=== PATIENT | male | born 1945 | race Caucasian/White ===

== ENCOUNTER → 2020-04-06 08:06 | Outpatient (BNVA) | payer MEDICARE, OTHER, SELFPAY | PROVIDERS: PCP Internal Medicine; Visit Provider Internal Medicine | DX: I48.0 Paroxysmal atrial fibrillation (principal); Z51.81 Encounter for therapeutic drug level monitoring; Z79.01 Long term (current) use of anticoagulants | CPT/HCPCS: 85610; 99211 ==

== ENCOUNTER 2020-06-14 06:51 | Outpatient (REF) | payer MEDICARE, OTHER, SELFPAY ==
[2020-06-14 08:02] LABS: MANUAL DIFF FLAG NO
[2020-06-14 08:09] LABS: Basophils Percent Auto 0.5 % (0-2); Eosinophils Absolute Auto 0.2 X10*3/uL (0.0-0.4); Eosinophils Percent Auto 2.1 % (0-4); Hematocrit 46.2 % (42-52); Hemoglobin 15.1 g/dl (14.0-18.0); Imm Gran Abs Auto 0.03 X10*3/uL (0.00-0.03); Imm Gran Pct Auto 0.4 % (0.0-0.4); Lymphocytes Absolute Auto 2.4 X10*3/uL (1.2-4.9); Lymphocytes Percent Auto 31.5 % (20-40); Mean Corpuscular HGB Conc 32.7 g/dl (31.0-36.0); Mean Corpuscular Volume 88.7 fL (80-98); Mean Platelet Volume 9.5 fL (9.4-12.4); Monocytes Absolute Auto 0.7 X10*3/uL (0.1-1.2); Monocytes Percent Auto 9.1 % (2-11); Neutrophils Absolute Auto 4.3 X10*3/uL (2.0-8.3); Neutrophils Percent Auto 56.4 % (45-73); Platelet Count 263 X10*3/uL (160-400); Red Blood Count 5.21 X10*6/uL (4.60-5.80); White Blood Count 7.6 X10*3/uL (4.8-10.8)
[2020-06-14 08:23] LABS: Alanine Aminotransferase 28 U/L (0-40); Albumin Level 4.2 g/dL (3.5-5.0); Alkaline Phosphatase 80 U/L (39-117); Anion Gap 13 (12-20); Aspartate Amino Transferase 29 U/L (5-37); Bilirubin Total 0.8 mg/dL (0.0-1.0); Blood Urea Nitrogen 27 mg/dL (9-16); Calcium 9.1 mg/dL (8.4-10.2); Carbon Dioxide 27 mmol/L (22-29); Chloride 105 mmol/L (96-108); Cholesterol 144 mg/dL; Estimated Glomerular Filt Rate 53; Glucose Fasting 98 mg/dL (60-99); HDL Cholesterol 42 mg/dL; LDL Cholesterol Calculated 70 mg/dl; Potassium 4.6 mmol/l (3.3-5.1); Sodium 140 mmol/L (135-145); Total Protein 7.1 g/dL (6.5-8.0); Triglycerides 163 mg/dL
== END 2020-06-14 06:52 | disposition home or self-care (01) ==
LOC: HO.LAB 06:51
PROVIDERS: PCP Internal Medicine; Visit Provider Internal Medicine
DX: I25.10 Atherosclerotic heart disease of native coronary artery without angina pectoris (principal); I48.91 Unspecified atrial fibrillation; I10 Essential (primary) hypertension; E78.00 Pure hypercholesterolemia, unspecified; D64.9 Anemia, unspecified; N28.9 Disorder of kidney and ureter, unspecified
CPT/HCPCS: 36415; 80053; 80061; 85025

== ENCOUNTER → 2020-06-20 08:02 | Outpatient (BNVA) | payer MEDICARE, OTHER, SELFPAY | PROVIDERS: PCP Internal Medicine; Visit Provider Internal Medicine | DX: I48.0 Paroxysmal atrial fibrillation (principal); Z51.81 Encounter for therapeutic drug level monitoring; Z79.01 Long term (current) use of anticoagulants | CPT/HCPCS: 85610; 99211 ==

== ENCOUNTER → 2020-11-07 08:00 | Outpatient (BNVA) | payer MEDICARE, OTHER, SELFPAY | PROVIDERS: PCP Internal Medicine; Visit Provider Internal Medicine | DX: I48.0 Paroxysmal atrial fibrillation (principal); Z51.81 Encounter for therapeutic drug level monitoring; Z79.01 Long term (current) use of anticoagulants | CPT/HCPCS: 85610; 99211 ==

== ENCOUNTER → 2020-12-05 08:16 | Outpatient (BNVA) | payer MEDICARE, OTHER, SELFPAY | PROVIDERS: PCP Internal Medicine; Visit Provider Internal Medicine | DX: I48.0 Paroxysmal atrial fibrillation (principal); Z51.81 Encounter for therapeutic drug level monitoring; Z79.01 Long term (current) use of anticoagulants | CPT/HCPCS: 85610; 99211 ==

== ENCOUNTER → 2021-01-10 08:01 | Outpatient (BNVA) | payer MEDICARE, OTHER, SELFPAY | PROVIDERS: PCP Internal Medicine; Visit Provider Internal Medicine | DX: I48.0 Paroxysmal atrial fibrillation (principal); Z51.81 Encounter for therapeutic drug level monitoring; Z79.01 Long term (current) use of anticoagulants | CPT/HCPCS: 85610; 99211 ==

== ENCOUNTER → 2021-02-07 07:58 | Outpatient (BNVA) | payer MEDICARE, OTHER, SELFPAY | PROVIDERS: PCP Internal Medicine; Visit Provider Internal Medicine | DX: I48.0 Paroxysmal atrial fibrillation (principal); Z79.01 Long term (current) use of anticoagulants; Z51.81 Encounter for therapeutic drug level monitoring | CPT/HCPCS: 85610; 99211 ==

== ENCOUNTER → 2021-03-08 08:02 | Outpatient (BNVA) | payer MEDICARE, OTHER, SELFPAY | PROVIDERS: PCP Internal Medicine; Visit Provider Internal Medicine | DX: I48.0 Paroxysmal atrial fibrillation (principal); Z51.81 Encounter for therapeutic drug level monitoring; Z79.01 Long term (current) use of anticoagulants | CPT/HCPCS: 85610; 99211 ==

== ENCOUNTER 2021-03-27 06:59 | Outpatient (REF) | payer MEDICARE, OTHER, SELFPAY ==
[2021-03-27 08:01] LABS: MANUAL DIFF FLAG NO
[2021-03-27 08:08] LABS: Basophils Percent Auto 0.5 % (0-2); Eosinophils Absolute Auto 0.2 X10*3/uL (0.0-0.4); Eosinophils Percent Auto 3.6 % (0-4); Hematocrit 41.5 % (42-52); Hemoglobin 13.7 g/dl (14.0-18.0); Imm Gran Abs Auto 0.01 X10*3/uL (0.00-0.03); Imm Gran Pct Auto 0.2 % (0.0-0.4); Lymphocytes Absolute Auto 1.9 X10*3/uL (1.2-4.9); Lymphocytes Percent Auto 31.5 % (20-40); Mean Corpuscular Hemoglobin 29.2 pg (27.0-33.0); Mean Corpuscular Volume 88.5 fL (80-98); Mean Platelet Volume 9.4 fL (9.4-12.4); Monocytes Absolute Auto 0.7 X10*3/uL (0.1-1.2); Monocytes Percent Auto 10.6 % (2-11); Neutrophils Absolute Auto 3.3 X10*3/uL (2.0-8.3); Neutrophils Percent Auto 53.6 % (45-73); Platelet Count 230 X10*3/uL (160-400); Red Blood Count 4.69 X10*6/uL (4.60-5.80); Red Cell Distribution Width 12.5 % (11.0-16.0); White Blood Count 6.2 X10*3/uL (4.8-10.8)
[2021-03-27 08:29] LABS: Alanine Aminotransferase 29 U/L (0-40); Albumin Level 4.2 g/dL (3.5-5.0); Alkaline Phosphatase 83 U/L (39-117); Anion Gap 11 (12-20); Aspartate Amino Transferase 28 U/L (5-37); Bilirubin Total 0.7 mg/dL (0.0-1.0); Blood Urea Nitrogen 20 mg/dL (9-16); Calcium 9.7 mg/dL (8.4-10.2); Carbon Dioxide 27 mmol/L (22-29); Chloride 108 mmol/L (96-108); Cholesterol 151 mg/dL; Estimated Glomerular Filt Rate 51; Glucose Random 100 mg/dL (60-115); HDL Cholesterol 43 mg/dL; LDL Cholesterol Calculated 77 mg/dl; Sodium 141 mmol/L (135-145); Triglycerides 159 mg/dL
[2021-03-27 08:31] LABS: B Type Natriuretic Peptide 62 pg/mL (<100)
[2021-03-27 08:54] LABS: Free T4 (Free Thyroxine) 0.82 ng/dL (0.71-1.85); Prostate Specific Antigen Scr < 0.05 ng/mL (<0.05-4.0); Thyroid Stimulating Hormone 2.72 uIU/mL (0.32-4.0)
[2021-03-27 11:02] LABS: Folate 16.1 ng/mL (> or = 4.0); Vitamin B12 436 pg/mL (200-900)
== END 2021-03-27 07:00 | disposition home or self-care (01) ==
LOC: HO.LAB 06:59
PROVIDERS: PCP Internal Medicine; Visit Provider Internal Medicine
DX: Z12.5 Encounter for screening for malignant neoplasm of prostate (principal); I10 Essential (primary) hypertension; E78.00 Pure hypercholesterolemia, unspecified; I48.0 Paroxysmal atrial fibrillation; Z85.46 Personal history of malignant neoplasm of prostate
CPT/HCPCS: 36415; 80053; 80061; 82607; 82746; 83880; 84153; 84439; 84443; 85025

== ENCOUNTER → 2021-04-05 08:05 | Outpatient (BNVA) | payer MEDICARE, OTHER, SELFPAY | PROVIDERS: PCP Internal Medicine; Visit Provider Internal Medicine | DX: I48.0 Paroxysmal atrial fibrillation (principal); Z51.81 Encounter for therapeutic drug level monitoring; Z79.01 Long term (current) use of anticoagulants | CPT/HCPCS: 85610; 99211 ==

== ENCOUNTER → 2021-06-06 08:03 | Outpatient (BNVA) | payer MEDICARE, OTHER, SELFPAY | PROVIDERS: PCP Internal Medicine; Visit Provider Internal Medicine | DX: I48.0 Paroxysmal atrial fibrillation (principal); Z51.81 Encounter for therapeutic drug level monitoring; Z79.01 Long term (current) use of anticoagulants | CPT/HCPCS: 85610; 99211 ==

== ENCOUNTER → 2021-11-21 08:01 | Outpatient (BNVA) | payer MEDICARE, OTHER, SELFPAY | PROVIDERS: PCP Internal Medicine; Visit Provider Internal Medicine | DX: I48.0 Paroxysmal atrial fibrillation (principal); Z79.01 Long term (current) use of anticoagulants; Z51.81 Encounter for therapeutic drug level monitoring | CPT/HCPCS: 85610; 99211 ==

== ENCOUNTER → 2021-12-20 08:02 | Outpatient (BNVA) | payer MEDICARE, OTHER, SELFPAY | PROVIDERS: PCP Internal Medicine; Visit Provider Internal Medicine | DX: I48.0 Paroxysmal atrial fibrillation (principal); Z79.01 Long term (current) use of anticoagulants; Z51.81 Encounter for therapeutic drug level monitoring | CPT/HCPCS: 85610; 99211 ==

== ENCOUNTER 2022-01-05 06:55 | Outpatient (REF) | payer MEDICARE, OTHER, SELFPAY ==
[2022-01-05 07:07] LABS: MANUAL DIFF FLAG NO
[2022-01-05 07:13] LABS: Basophils Absolute Auto 0.1 X10*3/uL (0.0-0.2); Basophils Percent Auto 0.8 % (0-2); Eosinophils Absolute Auto 0.2 X10*3/uL (0.0-0.4); Eosinophils Percent Auto 3.2 % (0-4); Hematocrit 42.3 % (42.0-52.0); Hemoglobin 13.9 g/dl (14.0-18.0); Imm Gran Abs Auto 0.02 X10*3/uL (0.00-0.03); Imm Gran Pct Auto 0.3 % (0.0-0.4); Lymphocytes Absolute Auto 2.3 X10*3/uL (1.2-4.9); Lymphocytes Percent Auto 35.5 % (20-40); Mean Corpuscular HGB Conc 32.9 g/dl (31.0-36.0); Mean Corpuscular Volume 88.3 fL (80.0-98.0); Mean Platelet Volume 9.2 fL (9.4-12.4); Monocytes Absolute Auto 0.6 X10*3/uL (0.1-1.2); Monocytes Percent Auto 9.6 % (2-11); Neutrophils Absolute Auto 3.2 x10*3/uL (2.0-8.3); Neutrophils Percent Auto 50.6 % (45-73); Platelet Count 237 X10*3/uL (160-400); Red Blood Count 4.79 X10*6/uL (4.60-5.80); White Blood Count 6.3 X10*3/uL (4.8-10.8)
[2022-01-05 07:37] LABS: Alanine Aminotransferase 25 U/L (0-40); Albumin Level 4.1 g/dL (3.5-5.0); Alkaline Phosphatase 80 U/L (39-117); Anion Gap 12 (12-20); Aspartate Amino Transferase 30 U/L (5-37); Bilirubin Total 0.5 mg/dL (0.0-1.0); Blood Urea Nitrogen 23 mg/dL (9-16); Carbon Dioxide 25 mmol/L (22-29); Chloride 108 mmol/L (96-108); Estimated Glomerular Filt Rate 49; Glucose Random 100 mg/dL (60-115); Sodium 140 mmol/L (135-145)
[2022-01-05 07:39] LABS: B Type Natriuretic Peptide 191 pg/mL (<100)
[2022-01-05 08:02] LABS: Free T4 (Free Thyroxine) 1.03 ng/dL (0.71-1.85); PSA,Total (Free>4and<10) < 0.05 ng/mL (0.00-4.00); Thyroid Stimulating Hormone 1.94 uIU/mL (0.32-4.0)
[2022-01-05 08:16] LABS: Vitamin B12 382 pg/mL (200-900)
== END 2022-01-05 06:56 | disposition home or self-care (01) ==
LOC: HO.LAB 06:55
PROVIDERS: PCP Internal Medicine; Visit Provider Internal Medicine
DX: I48.0 Paroxysmal atrial fibrillation (principal); Z85.46 Personal history of malignant neoplasm of prostate; Z12.5 Encounter for screening for malignant neoplasm of prostate
CPT/HCPCS: 36415; 80053; 82607; 82746; 83880; 84153; 84439; 84443; 85025

== ENCOUNTER → 2022-01-17 07:58 | Outpatient (BNVA) | payer MEDICARE, OTHER, SELFPAY | PROVIDERS: PCP Internal Medicine; Visit Provider Internal Medicine | DX: I48.0 Paroxysmal atrial fibrillation (principal); Z51.81 Encounter for therapeutic drug level monitoring; Z79.01 Long term (current) use of anticoagulants | CPT/HCPCS: 85610; 99211 ==

== ENCOUNTER → 2022-02-14 08:07 | Outpatient (BNVA) | payer MEDICARE, OTHER, SELFPAY | PROVIDERS: PCP Internal Medicine; Visit Provider Internal Medicine | DX: I48.0 Paroxysmal atrial fibrillation (principal); Z79.01 Long term (current) use of anticoagulants; Z51.81 Encounter for therapeutic drug level monitoring | CPT/HCPCS: 85610; 99211 ==

== ENCOUNTER → 2022-03-14 08:00 | Outpatient (BNVA) | payer MEDICARE, OTHER, SELFPAY | PROVIDERS: PCP Internal Medicine; Visit Provider Internal Medicine | DX: I48.0 Paroxysmal atrial fibrillation (principal); Z79.01 Long term (current) use of anticoagulants; Z51.81 Encounter for therapeutic drug level monitoring | CPT/HCPCS: 85610; 99211 ==

== ENCOUNTER 2022-03-26 10:02 | Outpatient (REF) | payer MEDICARE, OTHER, SELFPAY ==
--- NOTE | ~2022-03-26 | XR_ITS ---
EXAMINATION: XR KNEE, BILATERAL CLINICAL INFORMATION: Bilateral knee pain. COMPARISON: None TECHNIQUE: AP and lateral radiographs of each knee. FINDINGS: Right Knee: Medial compartment narrowing. Small marginal osteophytes of all 3 compartments. No fracture. No joint effusion. Left Knee: Mild medial compartment narrowing with small marginal osteophytes. Small marginal osteophytes in the patellofemoral compartment. No fracture or joint effusion. XR/XR knee LT 2V IMPRESSION: RIGHT KNEE: Moderate-severe medial compartment and mild patellofemoral/lateral compartment osteoarthritis. LEFT KNEE: Moderate medial compartment and mild patellofemoral compartment osteoarthritis.
--- NOTE | ~2022-03-26 | XR_ITS ---
EXAMINATION: XR KNEE, BILATERAL CLINICAL INFORMATION: Bilateral knee pain. COMPARISON: None TECHNIQUE: AP and lateral radiographs of each knee. FINDINGS: Right Knee: Medial compartment narrowing. Small marginal osteophytes of all 3 compartments. No fracture. No joint effusion. Left Knee: Mild medial compartment narrowing with small marginal osteophytes. Small marginal osteophytes in the patellofemoral compartment. No fracture or joint effusion. XR/XR knee RT 2V IMPRESSION: RIGHT KNEE: Moderate-severe medial compartment and mild patellofemoral/lateral compartment osteoarthritis. LEFT KNEE: Moderate medial compartment and mild patellofemoral compartment osteoarthritis.
--- NOTE | ~2022-03-26 | XR_ITS ---
EXAMINATION: XR HAND, RIGHT CLINICAL INFORMATION: Right hand pain COMPARISON: None TECHNIQUE: PA, lateral, and oblique views of the right hand. FINDINGS: Marked narrowing of the 5th DIP joint. Prominent narrowing of the triscaphoid articulation. Arthritic changes elsewhere are mild. No acute osseous abnormality. No active erosions or suspicious soft tissue calcifications. XR/XR hand RT 2V IMPRESSION: No acute abnormality. Osteoarthritis in a distal distribution, most prominent at the 5th DIP joint.
== END 2022-03-26 10:03 | disposition home or self-care (01) ==
LOC: HO.XRAY 10:02
PROVIDERS: PCP Internal Medicine; Visit Provider Nurse Practitioner Family
DX: M25.561 Pain in right knee (principal); M25.562 Pain in left knee; M25.541 Pain in joints of right hand
CPT/HCPCS: 73120; 73560

== ENCOUNTER → 2022-04-10 08:38 | Outpatient (BNVA) | payer MEDICARE, OTHER, SELFPAY | PROVIDERS: PCP Internal Medicine; Visit Provider Internal Medicine | DX: I48.0 Paroxysmal atrial fibrillation (principal); Z79.01 Long term (current) use of anticoagulants; Z51.81 Encounter for therapeutic drug level monitoring | CPT/HCPCS: 85610; 99211 ==

== ENCOUNTER 2022-06-12 07:17 | Outpatient (REF) | payer MEDICARE, OTHER, SELFPAY ==
[2022-06-12 08:13] LABS: Hematocrit 43.5 % (42.0-52.0); Hemoglobin 14.4 g/dl (14.0-18.0); Mean Corpuscular HGB Conc 33.1 g/dl (31.0-36.0); Mean Corpuscular Hemoglobin 28.9 pg (27.0-33.0); Mean Corpuscular Volume 87.2 fL (80.0-98.0); Mean Platelet Volume 9.2 fL (9.4-12.4); Platelet Count 253 X10*3/uL (160-400); Red Blood Count 4.99 X10*6/uL (4.60-5.80); Red Cell Distribution Width 12.8 % (11.0-16.0); White Blood Count 8.2 X10*3/uL (4.8-10.8)
[2022-06-12 08:41] LABS: Anion Gap 12 (12-20); Blood Urea Nitrogen 22 mg/dL (9-16); Calcium 9.5 mg/dL (8.4-10.2); Carbon Dioxide 26 mmol/L (22-29); Chloride 107 mmol/L (96-108); Estimated Glomerular Filt Rate 48; Glucose Random 90 mg/dL (60-115); Potassium 4.8 mmol/L (3.3-5.1); Sodium 140 mmol/L (135-145)
== END 2022-06-12 07:18 | disposition home or self-care (01) ==
LOC: HO.LAB 07:17
PROVIDERS: PCP Internal Medicine; Visit Provider Nurse Practitioner Family
DX: R42 Dizziness and giddiness (principal)
CPT/HCPCS: 36415; 80048; 85027

== ENCOUNTER → 2022-06-13 07:57 | Outpatient (BNVA) | payer MEDICARE, OTHER, SELFPAY | PROVIDERS: PCP Internal Medicine; Visit Provider Internal Medicine | DX: I48.0 Paroxysmal atrial fibrillation (principal); Z79.01 Long term (current) use of anticoagulants; Z51.81 Encounter for therapeutic drug level monitoring | CPT/HCPCS: 85610; 99211 ==

== ENCOUNTER 2022-11-07 06:59 | Outpatient (REF) | payer MEDICARE, OTHER, SELFPAY ==
[2022-11-07 07:07] LABS: MANUAL DIFF FLAG NO
[2022-11-07 07:38] LABS: Basophils Percent Auto 0.1 % (0-2); Hematocrit 40.9 % (42.0-52.0); Hemoglobin 13.5 g/dl (14.0-18.0); Imm Gran Abs Auto 0.06 X10*3/uL (0.00-0.03); Imm Gran Pct Auto 0.5 % (0.0-0.4); Lymphocytes Absolute Auto 1.4 X10*3/uL (1.2-4.9); Mean Corpuscular Hemoglobin 28.9 pg (27.0-33.0); Mean Corpuscular Volume 87.6 fL (80.0-98.0); Mean Platelet Volume 9.2 fL (9.4-12.4); Monocytes Absolute Auto 0.7 X10*3/uL (0.1-1.2); Monocytes Percent Auto 5.9 % (2-11); Neutrophils Absolute Auto 8.9 x10*3/uL (2.0-8.3); Neutrophils Percent Auto 80.5 % (45-73); Platelet Count 288 X10*3/uL (160-400); Red Blood Count 4.67 X10*6/uL (4.60-5.80); Red Cell Distribution Width 12.9 % (11.0-16.0); White Blood Count 11.1 X10*3/uL (4.8-10.8)
[2022-11-07 08:23] LABS: Alanine Aminotransferase 19 U/L (0-40); Albumin Level 4.2 g/dL (3.5-5.0); Alkaline Phosphatase 88 U/L (39-117); Anion Gap 12 (12-20); Aspartate Amino Transferase 23 U/L (5-37); Bilirubin Total 0.8 mg/dL (0.0-1.0); Blood Urea Nitrogen 23 mg/dL (9-16); Calcium 9.9 mg/dL (8.4-10.2); Carbon Dioxide 24 mmol/L (22-29); Chloride 110 mmol/L (96-108); Cholesterol 137 mg/dL; Estimated Glomerular Filt Rate 57; Glucose Random 102 mg/dL (60-115); HDL Cholesterol 44 mg/dL; LDL Cholesterol Calculated 71 mg/dl; Potassium 4.4 mmol/L (3.3-5.1); Sodium 142 mmol/L (135-145); Total Protein 7.1 g/dL (6.5-8.0); Triglycerides 111 mg/dL
[2022-11-07 08:31] LABS: Estimated Average Glucose 111 mg/dL; Hemoglobin A1c % 5.5 %
[2022-11-07 08:53] LABS: Folate 14.3 ng/mL (> or = 4.0); Free T4 (Free Thyroxine) 0.82 ng/dL (0.71-1.85); Thyroid Stimulating Hormone 0.95 uIU/mL (0.32-4.0); Vitamin B12 409 pg/mL (200-900)
== END 2022-11-07 07:00 | disposition home or self-care (01) ==
LOC: HO.LAB 06:59
PROVIDERS: PCP Internal Medicine; Visit Provider Internal Medicine
DX: E78.00 Pure hypercholesterolemia, unspecified (principal); R73.9 Hyperglycemia, unspecified
CPT/HCPCS: 36415; 80053; 80061; 82607; 82746; 83036; 84439; 84443; 85025

== ENCOUNTER → 2022-11-14 08:10 | Outpatient (BNVA) | payer MEDICARE, OTHER, SELFPAY | PROVIDERS: PCP Internal Medicine; Visit Provider Internal Medicine | DX: I48.0 Paroxysmal atrial fibrillation (principal); Z79.01 Long term (current) use of anticoagulants; Z51.81 Encounter for therapeutic drug level monitoring | CPT/HCPCS: 85610; 99211 ==

== ENCOUNTER → 2022-11-23 07:38 | Outpatient (REF) | payer MEDICARE, OTHER, SELFPAY ==
--- NOTE | 2022-11-23 07:41 | CA_ITS ---
Transthoracic Echocardiogram Patient (Last, First, Middle): Guero Real S Gender: Male Date of : 1945 Age: 77 Procedure Date: 11/23/2022 Procedure Type: Transthoracic Echocardiogram Location: OP Height: 177.8 cm Weight: 92.08 kg BSA: 2.10 m2 Heart Rate: bpm BP: 116 / 72 mmHg Sports Cartoonist: SB Referring MD: Pia Philippe MD Symptoms: I48.0 - Paroxysmal atrial fibrillation Study Quality: Adequate w contrast ECG Rhythm: Atrial Fibrillation Conclusions: - The left ventricular systolic function is low normal. The visually estimated ejection fraction is between 50-55%. - No obvious valvular pathology seen on this study. Findings Procedure Information Contrast agent, definity, is being given per protocol without apparent complications. Left Ventricle Normal left ventricular cavity size. There is normal left ventricular wall thickness. The left ventricular systolic function is low normal. The visually estimated ejection fraction is between 50-55%. Diastolic function is indeterminate on the basis of available data. No obvious wall motion abnormalities. Right Ventricle Normal right ventricular cavity size. There is low normal right ventricular systolic function. Atria The left atrium is mildly dilated. The right atrium is moderately dilated. Aortic Valve There is a normal trileaflet aortic valve. There is no aortic valve stenosis. There is no aortic valve regurgitation. Mitral Valve The mitral valve appears normal. There is trace mitral valve regurgitation. There is no mitral valve stenosis. Pulmonic Valve The pulmonic valve is likely normal. Tricuspid Valve Normal tricuspid valve structure. There is trace tricuspid valve regurgitation. There is no evidence of pulmonary hypertension. Great Vessels The asc aorta is normal in size. Venous The inferior vena cava is normal in size and collapses greater than 50% with inspiration. Pericardium/Pleural There is no evidence of pericardial effusion. Prior Study Comparison Changes noted compared to prior study dated: 07/16/2011. slight decrease in LVEF. Recommendations, Care & Conclusions No obvious valvular pathology seen on this study. Measurements 2D Linear Measurements IVSd: 0.67 0.6-0.9/0.6-1.0 cm LVIDd: 4.79 3.9-5.3/4.2-5.9 cm LVIDd Index: 2.28 2.4-3.2/2.2-3.1 cm/m2 LVIDs: 2.93 2.0-3.6 cm LVPWd: 0.78 0.7-1.1 cm LA Diam: 4.10 2.7-3.8/3.0-4.0 cm LAIDs Index: 1.95 1.5-2.3 cm/m2 LV Mass: 138.76 67-162/88-224 g LV Mass Index: 66.07 43-95/49-115 g/m2 LVOT Diam: 2.20 3.0+(-)1.3 cm 2D Systolic Function EF 4C: 50.10 >55% EF 2C: 45.20 >55% EF BiP: 47.20 >55% Mitral Valve MV Pk E: 0.80 Aortic Valve AoV Pk Braulio: 0.87 AoV Pk Grad: 3.00 SHAWN: 2.85 LVOT LVOT Pk Braulio: 0.65 LVOT Mn Braulio: 0.49 LVOT VTI: 0.13 LVOT Pk Grad: 2.00 LVOT Mn Grad: 1.00 LVOT Diam: 2.20 LVOT Area: 3.80 Diastolic Function MV Pk E: 0.80 Right Ventricle TAPSE (mm): 18.90 TVS' Braulio: 10.60 Tricuspid Valve TR Pk Braulio: 2.32 TR Pk Grad: 22.00 RA Press: 8.00 RVSP: 30.00 Great Vessels Aorta Sinus of Valsalva: 3.20 2.0-3.5 cm Ao Asc: 3.30 2.1-3.4 cm Pulmonary Valve PV Pk Braulio: 0.72 Peak PV Grad: 2.00 Updated in Other Vendor System with Status of Final Jevon Cooper MD electronically signed on 11/24/2022 1:48:52 PM with status of Final
== END ==
LOC: HO.CARD 07:38
PROVIDERS: PCP Internal Medicine; Visit Provider Internal Medicine
DX: I48.0 Paroxysmal atrial fibrillation (principal)
CPT/HCPCS: 93306; Q9957

== ENCOUNTER → 2022-11-29 08:03 | Outpatient (BNVA) | payer MEDICARE, OTHER, SELFPAY | PROVIDERS: PCP Internal Medicine; Visit Provider Internal Medicine | DX: I48.0 Paroxysmal atrial fibrillation (principal); Z79.01 Long term (current) use of anticoagulants; Z51.81 Encounter for therapeutic drug level monitoring | CPT/HCPCS: 85610; 99211 ==

== ENCOUNTER → 2022-12-06 08:50 | Outpatient (BNVA) | payer MEDICARE, OTHER, SELFPAY | PROVIDERS: PCP Internal Medicine; Visit Provider Internal Medicine | DX: I48.0 Paroxysmal atrial fibrillation (principal); Z79.01 Long term (current) use of anticoagulants; Z51.81 Encounter for therapeutic drug level monitoring | CPT/HCPCS: 85610; 99211 ==

== ENCOUNTER 2022-12-13 08:00 | Outpatient (RCR) | payer MEDICARE, OTHER, SELFPAY ==
[2022-11-22 07:09] VITALS: BP 116/72; PULSE 78; O2SAT 97
== END 2023-02-12 15:25 | disposition home or self-care (01) ==
LOC: HO.PT 08:00
PROVIDERS: PCP Internal Medicine; Visit Provider Physician Assistant Surgical
DX: M12.811 Other specific arthropathies, not elsewhere classified, right shoulder (principal)
CPT/HCPCS: 97110; 97161; 97530

== ENCOUNTER → 2022-12-18 08:26 | Outpatient (BNVA) | payer MEDICARE, OTHER, SELFPAY | PROVIDERS: PCP Internal Medicine; Visit Provider Internal Medicine | DX: I48.0 Paroxysmal atrial fibrillation (principal); Z79.01 Long term (current) use of anticoagulants; Z51.81 Encounter for therapeutic drug level monitoring | CPT/HCPCS: 85610; 99211 ==

== ENCOUNTER 2023-01-15 08:04 | Outpatient (AMB) | payer MEDICARE, OTHER, SELFPAY ==
--- NOTE | 2023-01-15 08:16 | MHC.OFFVISCO ---
Intake Intake Visit Reasons: Anticoagulation Allergies prednisone Allergy (Unknown, Verified 01/15/23 08:08) ? joint pain lisinopril Adverse Reaction (Intermediate, Verified 01/15/23 08:08) Dry throat Medication List - Last Reconciled 01/15/23 by Violeta Wyman RN hyaluronic acid, hydrol (bulk) (Hydrolyzed Hyaluronic Acid) miscellaneous lactobacillus combination no.8 (Adult Probiotic) 3,000 mmu cells PO DAILY losartan 25 mg PO DAILY meclizine 12.5 mg PO BID metoprolol succinate ER 50 mg PO DAILY metoprolol succinate ER 25 mg PO DAILY [id number]-jya-NU-lycopen-lutein 300-600-300 mcg (Centrum Silver Men) 1 tab PO DAILY rosuvastatin 20 mg PO DAILY warfarin 2.5 mg See Protocol PO DAILY Nursing Note Amb to [facility] feeling well Medications and supplements reviewed No changes in health, diet, medications, or supplements Denies any unusual signs and symptoms of bruising, bleeding Denies any new Chest pain, SOB, or clotting INR: 2.4 in therapeutic range Nutritional guidance given: balance greens and reds in diet Dose: continue usual dosing; 1.25mg x 1 day and 2.5mg x 6 days F/U INR: 4 weeks Patient verbalizes understanding of instructions given with accurate read back/ teach back of dosing Anti-Coag Initial Assessment Social Hx Patient Tobacco Use Status: Never used Tobacco alcohol intake: current Alcohol intake frequency: a few times a month Coding Level of Care Code Est Patient Level 1 Diagnoses Current use of anticoagulant therapy Z79.01 Time Spent (min) 15 Results AMB INR Fingerstick AMB INR Fingerstick 2.4 Last Edit by Violeta Wyman RN on 01/15/23 08:20 interface failure Assessment & Plan Assessment & Plan (1) Current use of anticoagulant therapy: Code(s): Z79.01 - [facility] (current) use of anticoagulants Category: Medical
[2023-01-15 09:27] LABS: Prothrombin Time Whole Bld POC 28.3 sec (11.1-13.5); ~PT, ~INR - Anti Coag Clinic 2.4 (0.9-1.1)
== END 2023-01-15 09:06 | disposition home or self-care (01) ==
LOC: HO.ACS 08:04
PROVIDERS: PCP Internal Medicine; Visit Provider Internal Medicine
DX: Z79.01 Long term (current) use of anticoagulants (principal)

== ENCOUNTER → 2023-01-15 08:04 | Outpatient (BNVA) | payer MEDICARE, OTHER, SELFPAY | PROVIDERS: PCP Internal Medicine; Visit Provider Internal Medicine | DX: I48.0 Paroxysmal atrial fibrillation (principal); Z79.01 Long term (current) use of anticoagulants; Z51.81 Encounter for therapeutic drug level monitoring | CPT/HCPCS: 85610; 99211 ==

== ENCOUNTER 2023-02-13 08:05 | Outpatient (AMB) | payer MEDICARE, OTHER, SELFPAY ==
[2023-02-13 08:12] LABS: Prothrombin Time Whole Bld POC 24.1 sec (11.1-13.5)
--- NOTE | 2023-02-13 08:16 | MHC.OFFVISCO ---
Intake Intake Visit Reasons: Anticoagulation Allergies prednisone Allergy (Unknown, Verified 02/13/23 08:06) ? joint pain lisinopril Adverse Reaction (Intermediate, Verified 02/13/23 08:06) Dry throat Medication List - Last Reconciled 02/13/23 by Lubna Menard RN hyaluronic acid, hydrol (bulk) (Hydrolyzed Hyaluronic Acid) miscellaneous lactobacillus combination no.8 (Adult Probiotic) 3,000 mmu cells PO DAILY losartan 25 mg PO DAILY meclizine 12.5 mg PO BID metoprolol succinate ER 50 mg PO DAILY metoprolol succinate ER 25 mg PO DAILY gr-vvy-bkoav-S3-kgdllez-adhnoo 688-67-304-300 mcg (Centrum Silver Men) 1 tab PO DAILY rosuvastatin 20 mg PO DAILY warfarin 2.5 mg See Protocol PO DAILY Nursing Note INR: 2.0 in therapeutic range Medications and supplements reviewed No changes in health, diet, medications, or supplements, Denies any signs and symptoms of bleeding or bruising or clotting. Bleeding, bruising, clotting discussed Nutritional guidance given - review food list - eat more foods to help raise the INR Dose: 2.5mg x 6 days, 1.25mg x1 day F/U INR: 1 month Patient verbalizes understanding of instructions given Anti-Coag Initial Assessment Social Hx Patient Tobacco Use Status: Never used Tobacco alcohol intake: current Alcohol intake frequency: a few times a month Questionnaires HAS-BLED Does the patient had uncontrolled Hypertension?: No Does the patient have renal disease?: No Does the patient have liver disease?: No Does the patient have a history of stroke?: No Has the patient had major bleeding or predisposition to bleeding?: No Does the patient have labile INRs?: No Is the patient over 65 years of age?: Yes Is the patient on medications that gives them a predisposition to bleeding?: Yes Does the patient use alcohol?: No HAS-BLED Score: 2 CHADSVASC Age: 75 or over Gender: Male Does the patient have a history of CHF?: No Does the patient have a history of Hypertension?: Yes Does the patient have a history of Stroke/TIA/Thromboembolism?: No Does the patient have a history of Vascular Disease (prior IA, PAD or aortic plaque)?: Yes Does the patient have a history of Diabetes?: No CHADS VACS Score: 4 Josue Prediction Score Rsk VTE Active Cancer: No Previous VTE, excluding superficial vein thrombosis: No Reduced mobility: No Already known Thrombophilic Condition: Yes With-in last month Trauma and/or Surgery: No Elderly 70 year or older: Yes Heart and/or Respiratory Failure: No Acute Myocardial infarction and/or Ischemic Stroke: Yes Acute Infection and/or Rheumatologic Disorder: No Obesity (BMI 30 or greater): No Ongoing Hormonal Treatment: No Score: 5 Josue Score less than 4; Low Risk of VTE Josue Score 4 or greater; High Risk of VTE Coding Level of Care Code Est Patient Level 1 Diagnoses Current use of anticoagulant therapy Z79.01 Assessment & Plan Assessment & Plan (1) Current use of anticoagulant therapy: Code(s): Z79.01 - [facility] (current) use of anticoagulants Category: Medical
== END 2023-02-13 08:18 | disposition home or self-care (01) ==
LOC: HO.ACS 08:05
PROVIDERS: PCP Internal Medicine; Visit Provider Internal Medicine
DX: Z79.01 Long term (current) use of anticoagulants (principal)

== ENCOUNTER → 2023-02-13 08:05 | Outpatient (BNVA) | payer MEDICARE, OTHER, SELFPAY | PROVIDERS: PCP Internal Medicine; Visit Provider Internal Medicine | DX: I48.0 Paroxysmal atrial fibrillation (principal); Z79.01 Long term (current) use of anticoagulants; Z51.81 Encounter for therapeutic drug level monitoring | CPT/HCPCS: 85610; 99211 ==

== ENCOUNTER 2023-03-14 07:53 | Outpatient (AMB) | payer MEDICARE, OTHER, SELFPAY ==
[2023-03-14 08:09] LABS: Prothrombin Time Whole Bld POC 34.2 sec (11.1-13.5); ~PT, ~INR - Anti Coag Clinic 2.9 (0.9-1.1)
--- NOTE | 2023-03-14 08:12 | MHC.OFFVISCO ---
Intake Intake Visit Reasons: Anticoagulation Allergies prednisone Allergy (Unknown, Verified 03/14/23 08:02) ? joint pain lisinopril Adverse Reaction (Intermediate, Verified 03/14/23 08:02) Dry throat Medication List - Last Reconciled 03/14/23 by Violeta Wyman RN hyaluronic acid, hydrol (bulk) (Hydrolyzed Hyaluronic Acid) miscellaneous lactobacillus combination no.8 (Adult Probiotic) 3,000 mmu cells PO DAILY losartan 25 mg PO DAILY meclizine 12.5 mg PO BID metoprolol succinate ER 50 mg PO DAILY metoprolol succinate ER 25 mg PO DAILY eh-ssi-tedfx-T7-chamjhb-ibmkru 776-69-188-300 mcg (Centrum Silver Men) 1 tab PO DAILY rosuvastatin 20 mg PO DAILY warfarin 2.5 mg See Protocol PO DAILY Nursing Note Amb to [facility] feeling well s/p covid 02/22, took tylenol and Nyquil for Sxs also had shingles shot 02/12 Medications and supplements reviewed, plan cortisone shot to left shoulder in May (when home from [facility] for [place] [facility]) No other changes in health, diet, medications, or supplements Denies any unusual signs and symptoms of bruising, bleeding Denies any new Chest pain, SOB, or clotting INR: 2.9 in therapeutic range Nutritional guidance given: balance greens and reds in diet, be consistent Dose: continue usual dosing;1.25mg x 1 day and 2.5mg x 6 days F/U INR: 1 month Patient verbalizes understanding of instructions given with accurate read back/ teach back of dosing Anti-Coag Initial Assessment Social Hx Patient Tobacco Use Status: Never used Tobacco alcohol intake: current Alcohol intake frequency: a few times a month Coding Level of Care Code Est Patient Level 1 Diagnoses Current use of anticoagulant therapy Z79.01 Time Spent (min) 15 Assessment & Plan Assessment & Plan (1) Current use of anticoagulant therapy: Code(s): Z79.01 - shelter (current) use of anticoagulants Category: Medical
== END 2023-03-14 08:21 | disposition home or self-care (01) ==
LOC: HO.ACS 07:53
PROVIDERS: PCP Internal Medicine; Visit Provider Internal Medicine
DX: Z79.01 Long term (current) use of anticoagulants (principal)

== ENCOUNTER → 2023-03-14 07:53 | Outpatient (BNVA) | payer MEDICARE, OTHER, SELFPAY | PROVIDERS: PCP Internal Medicine; Visit Provider Internal Medicine | DX: I48.0 Paroxysmal atrial fibrillation (principal); Z79.01 Long term (current) use of anticoagulants; Z51.81 Encounter for therapeutic drug level monitoring | CPT/HCPCS: 85610; 99211 ==

== ENCOUNTER 2023-04-11 08:02 | Outpatient (AMB) | payer MEDICARE, OTHER, SELFPAY ==
[2023-04-11 08:09] LABS: Prothrombin Time Whole Bld POC 31.9 sec (11.1-13.5); ~PT, ~INR - Anti Coag Clinic 2.7 (0.9-1.1)
--- NOTE | 2023-04-11 08:12 | MHC.OFFVISCO ---
Intake Intake Visit Reasons: Anticoagulation Allergies prednisone Allergy (Unknown, Verified 04/11/23 08:05) ? joint pain lisinopril Adverse Reaction (Intermediate, Verified 04/11/23 08:05) Dry throat Medication List - Last Reconciled 04/11/23 by Lubna Menard RN hyaluronic acid, hydrol (bulk) (Hydrolyzed Hyaluronic Acid) miscellaneous lactobacillus combination no.8 (Adult Probiotic) 3,000 mmu cells PO DAILY losartan 25 mg PO DAILY meclizine 12.5 mg PO BID metoprolol succinate ER 50 mg PO DAILY metoprolol succinate ER 25 mg PO DAILY [id number]-jvc-gzqjy-I5-gkufxtu-ezycrq 336-50-615-300 mcg (Centrum Silver Men) 1 tab PO DAILY rosuvastatin 20 mg PO DAILY warfarin 2.5 mg See Protocol PO DAILY Nursing Note INR: 2.7 in therapeutic range Medications and supplements reviewed No changes in health, diet, medications, or supplements, Denies any signs and symptoms of bleeding or bruising or clotting. Bleeding, bruising, clotting discussed Nutritional guidance given Dose: keep same 1.25mg x 1 day/ 2.5mg x 6 days F/U INR: 1month in [place] then when [place] from [place] in [place] Patient verbalizes understanding of instructions given Anti-Coag Initial Assessment Social Hx Patient Tobacco Use Status: Never used Tobacco alcohol intake: current Alcohol intake frequency: a few times a month Coding Level of Care Code Est Patient Level 1 Diagnoses Current use of anticoagulant therapy Z79.01 Assessment & Plan Assessment & Plan (1) Current use of anticoagulant therapy: Code(s): Z79.01 - retirement (current) use of anticoagulants Category: Medical
== END 2023-04-11 08:15 | disposition home or self-care (01) ==
LOC: HO.ACS 08:02
PROVIDERS: PCP Internal Medicine; Visit Provider Internal Medicine
DX: Z79.01 Long term (current) use of anticoagulants (principal)

== ENCOUNTER → 2023-04-11 08:02 | Outpatient (BNVA) | payer MEDICARE, OTHER, SELFPAY | PROVIDERS: PCP Internal Medicine; Visit Provider Internal Medicine | DX: I48.0 Paroxysmal atrial fibrillation (principal); Z79.01 Long term (current) use of anticoagulants; Z51.81 Encounter for therapeutic drug level monitoring | CPT/HCPCS: 85610; 99211 ==

== ENCOUNTER 2023-06-25 12:12 | Outpatient (AMB) | payer MEDICARE, OTHER, SELFPAY ==
[2023-06-25 12:27] VITALS: BP 122/70; PULSE 78; TEMP 36.5; O2SAT 96
--- NOTE | 2023-06-25 12:27 | AM.OFFWIN_ITS ---
Intake Vital Signs 06/25/23 12:27 Height 5 ft 10 in BP 122/70 Blood Pressure Location Rt brachial Position Sitting Pulse 78 Pulse Source Pulse Oximeter Temp 97.7 F Temp Source Temporal Artery Scan Pulse Oximetry (%) 96 Oxygen Delivery Method Room Air Intake Visit Reasons: EP RSV-06/05 chest tight Intake Note: pt is here for c/o rsv on 06/05 states when coughing doesnt have breath and phlem Patient Tobacco Use Status: Never used Tobacco Allergies prednisone Allergy (Unknown, Verified 06/25/23 12:53) ? joint pain lisinopril Adverse Reaction (Intermediate, Verified 06/25/23 12:53) Dry throat Medication List - Last Reconciled 06/25/23 by Praveen Berger MD losartan 25 mg PO DAILY meclizine 12.5 mg PO BID metoprolol succinate ER 50 mg PO DAILY metoprolol succinate ER 25 mg PO DAILY [id number]-rvi-hlglx-J4-bweqcyr-qnloom 268-02-314-300 mcg (Centrum Silver Men) 1 tab PO DAILY rosuvastatin 20 mg PO DAILY warfarin 2.5 mg See Protocol PO DAILY Do you need a note to return to daycare/school/sports/work: No HPI EP RSV-06/05 chest tight HPI Details 78-year-old male presents to the office for a sick visit. Patient was diagnosed with RSV infection in [place] in the week of May. He received cough medication, inhalers and prednisone. Patient was feeling better and did not bring any of his medications here. Since his arrival here a week ago, patient feels that his symptoms of cough has recurred. No fevers or chills. No nausea or vomiting. [facility] Medical History Atrial fibrillation Constipation Coronary artery disease Fatty liver GERD (gastroesophageal reflux disease) History of prostate cancer History of renal calculi Hypercholesterolemia Hyperpigmentation Hypertension Osteoarthritis Surgical History History of cholecystectomy History of prostatectomy History of tonsillectomy Family History Father Hypertension Mother Cancer Social History Housing: House Alcohol intake: current Alcohol intake frequency: a few times a month Patient Tobacco Use Status: Never used Tobacco e-Cigarette/Vaping Use: Never Used Second Hand Smoke Exposure: No Current occupational status: retired Cognitive needs: No Hearing needs: No Vision needs: Yes Physical Exam Vital Signs: Last Vital Signs Temp 97.7 F 06/25/23 12:27 Pulse 78 06/25/23 12:27 BP 122/70 06/25/23 12:27 Pulse Ox 96 06/25/23 12:27 Oxygen Delivery Method Room Air 06/25/23 12:27 Const General: cooperative and healthy appearing Nutritional Appearance: well nourished Orientation/consciousness: patient oriented x3 Limitations: no limitations HEENT Head: Yes normal to inspection Eyes General: appearance normal, both eyes and all related structures Neck Neck: Yes normal visual inspection Chest Chest palpation & inspection: normal palpation of entire chest wall Resp Effort & Inspection: normal respiratory effort Neuro General: patient oriented x3 Assessment & Plan Assessment & Plan (1) Upper respiratory tract infection: Code(s): J06.9 - Acute upper respiratory infection, unspecified Plan: Azithromycin and albuterol called in. Increase fluid intake. On a different note patient needs a refill on his rosuvastatin. Same was done. Coding Level of Care Code Est Pt Level 3 (16650) Diagnoses Upper respiratory tract infection J06.9
== END 2023-06-25 15:02 | disposition home or self-care (01) ==
PROVIDERS: PCP Internal Medicine; Visit Provider Internal Medicine
DX: J06.9 Acute upper respiratory infection, unspecified (principal)
CPT/HCPCS: 99213

== ENCOUNTER 2023-11-05 12:47 | Outpatient (AMB) | payer MEDICARE, OTHER, SELFPAY ==
--- NOTE | 2023-11-05 13:00 | AM.OFFVISMDC ---
Intake Vital Signs 11/05/23 13:01 Height 5 ft 10 in Weight 209 lb BMI 30.0 BP 124/76 Blood Pressure Location Lt brachial Position Sitting Pulse 86 Pulse Source Pulse Oximeter Pulse Oximetry (%) 98 Oxygen Delivery Method Room Air Intake Visit Reasons: [facility] G0439 Allergies prednisone Allergy (Unknown, Verified 11/05/23 13:01) ? joint pain lisinopril Adverse Reaction (Intermediate, Verified 11/05/23 13:01) Dry throat Medication List - Last Reconciled 11/05/23 by Pia Philippe MD losartan 25 mg PO DAILY metoprolol succinate ER 50 mg PO DAILY metoprolol succinate ER 25 mg PO DAILY fv-tds-cqqbr-Q9-dgotauz-yfpznh 545-50-128-300 mcg (Centrum Silver Men) 1 tab PO DAILY rosuvastatin 20 mg PO DAILY warfarin 2.5 mg See Protocol PO DAILY HPI [facility] G0439 HPI Details 78-year-old obese male with a history of prostate cancer 2016 atrial fibrillation coronary artery disease and STEMI October 2015 with OM thrombus hypertension hypercholesterolemia GERD last seen in October 2022. Patient is here for annual well visit. Patient's Cologuard test was negative in May 2021 due for repeat this year noted shingles vaccine, upper respiratory tract infection in May 2023 Urgent Center was given Zithromax. Patient was also seen by Cardiology in January normal EF stress test done 2018 question of reason no ischemia patient was taken off sotalol in 2019 presently on Toprol 75 mg once a day chads Vasc 3 patient was also seen by Urology in November 2022 for lithiasis left kidney October 2022 echocardiogram showing low-normal ejection fraction of 50-55% no valvular problem. on walking distance - pressure of chest. - will be seeing cardiology- he will call. [facility] Medical History (Updated 11/05/23 @ 13:11 by Pia Philippe MD) Constipation Hyperpigmentation History of renal calculi Fatty liver GERD (gastroesophageal reflux disease) Osteoarthritis Hypercholesterolemia History of prostate cancer Atrial fibrillation Coronary artery disease Hypertension Surgical History (Updated 11/05/23 @ 13:19 by Pia Philippe MD) History of cataract surgery History of prostatectomy History of cholecystectomy History of tonsillectomy Family History Father Hypertension Mother Cancer Social History (Updated 11/05/23 @ 13:20 by Pia Philippe MD) Housing: House Alcohol intake: current Alcohol intake frequency: a few times a month Comment: in [place] 2 a week Patient Tobacco Use Status: Never used Tobacco e-Cigarette/Vaping Use: Never Used Second Hand Smoke Exposure: No Current occupational status: retired Cognitive needs: No Hearing needs: No Vision needs: Yes Questionnaire Medicare Wellness Checkup [age] What gender do you identify with?: male During the past 4 weeks, how much have you been bothered by emotional problems such as feeling anxious, depressed, irritable, sad or downhearted, and blue?: not at all During the past 4 weeks, has your physical & emotional health limited your social activities with family, friends, neighbors, or groups?: slightly During the past 4 weeks, how much bodily pain have you generally had?: no pain During the past 4 weeks, was someone available to help you if you needed & wanted help?: yes, as much as I wanted During the past 4 weeks, what was the hardest physical activity you could do for at least 2 minutes?: moderate Can you get to places out of walking distance without help? (For eg., can you travel alone on buses, taxis or drive your car?): Yes Can you go shopping for groceries or clothes without someone's help?: Yes Can you prepare your own meals?: Yes Can you do your housework without help?: Yes Because of any health problems, do you need the help of another person with your personal care needs such as eating, bathing, dressing or getting around the house?: No Can you handle your own money without help?: Yes During the past 4 weeks, how would you rate your health in general?: good During the past 4 weeks how have things been going for you?: good & bad parts about equal Are you having difficulties driving your car?: no Do you always fasten your seat belt when you are in a car?: yes, usually During past 4 weeks, have you been bothered by the following: never: Falling or dizzy when standing up, Sexual problems?, Trouble eating well?, Teeth or denture problems? and Problems using the telephone? and seldom: Tiredness or fatigue? Have you fallen 2 or more times in the past year?: No Are you afraid of falling?: No Are you a smoker?: no During the past 4 weeks, how many drinks of wine, beer, or other alcoholic beverages did you have?: 1 drink or less per week Do you exercise for about 20 minutes 3 or more times a week?: yes, some of the time Have you been given information to help with the following?: yes: Keeping track of your medications? and no: Hazards in your house that might hurt you? How often do you have trouble taking medicines the way you have been told to take them?: I always take medicine as prescribed How confident are you that you can control & manage most of your health problems?: very confident What is your race?: White PHQ-9 Over the last 2 weeks, how often have you been bothered by any of the following problems? 1. Little interest or pleasure in doing things: not at all 2. Feeling down, depressed, or hopeless: several days 3. Trouble falling or staying asleep, or sleeping too much: not at all 4. Feeling tired or having little energy: several days 5. Poor appetite or overeating: not at all 6. Feeling bad about yourself - or that you are a failure or have let yourself or your family down: not at all 7. Trouble concentrating on things, such as reading the newspaper or watching television: not at all 8. Moving or speaking so slowly that other people could have noticed. Or the opposite - being so fidgety or restless that you have been moving around a lot more than usual: not at all 9. Thoughts that you would be better off or of hurting yourself in some way: not at all Total score: 2 Depression Screening Interpretation: Negative Depression Screening Done: Yes Source: Developed by Drs. Sedrick Escobar, Marge Weiner, Saleem Serrano and colleagues, with an educational reva from [employer]. Thrive Questionnaire Date Thrive assessed: 11/05/23 I am a: Patient What is your living situation today?: I have a steady place to live Within the past 12 months, did the food you bought not last and you didn't have the money to get more?: Never true Within the past 12 months, did you worry whether your food would run out before you got money to buy more?: Never true Do you have trouble paying for medicines?: No Do you have trouble getting transportation to medical appointments?: No Do you have trouble paying your heating and electricity bill?: No Do you have trouble taking care of your child, family member or friend?: No Do you have trouble with day-to-day activities such as bathing, preparing meals, shopping, managing finances, etc.?: No Are you currently unemployed and looking for a job?: No Are you interested in more education?: No Currently or been in a relationship where the following occur: no concerns reported THRIVE Score: 0 MOISES-7 AMB Questionnaire MOISES-7 Date MOISES - 7 assessed: 11/05/23 Feeling nervous, anxious, or on edge: 0 = Not at all Not being able to stop or control worryin = Not at all Worrying too much about different things: 0 = Not at all Trouble relaxin = Not at all Being so restless that it is hard to sit still: 0 = Not at all Becoming easily annoyed or irritable: 0 = Not at all Feeling afraid as if something awful might happen: 0 = Not at all Total MOISES-7 score (0-4 normal; 5-9 mild; 10-14 moderate; 15-21 severe): 0 Source: Developed by Drs. Sedrick Escobar, Marge Weiner, Saleem Serrano and colleagues, with an educational reva from [employer]. Review of Systems Const Denies poor appetite and Denies weakness Eyes Denies no additional complaints ENT Reports Normal hearing present, Denies dizziness, Denies nasal congestion, Denies tinnitus and Denies sore throat Card Denies chest pain, Denies syncope, Denies rapid heart rate and Denies dyspnea Resp Denies cough and Denies dyspnea GI Denies change in stool character, Reports constipation, Denies diarrhea, Denies nausea and Denies vomiting Denies dysuria and Denies urinary frequency Neuro Reports Normal hearing present, Denies confusion, Denies dizziness, Denies syncope and Denies weakness Psych Denies confusion Physical Exam Vital Signs: Last Vital Signs Pulse 86 11/05/23 13:01 BP 124/76 11/05/23 13:01 Pulse Ox 98 11/05/23 13:01 Oxygen Delivery Method Room Air 11/05/23 13:01 BMI result Body Mass Index 30.0 Const General: No confusion Orientation/consciousness: No confusion HEENT Head: Yes normocephalic Ears: external ears normal and TM's normal bilaterally Face and sinus: Yes normal facial exam Mouth: moist mucous membranes Throat: Yes tonsils normal Eyes Conjunctivae: conjunctivae normal Pupils: Equal, round and reactive pupils present and Pupil accommodation reflex normal Direct Ophthalmoscopy: normal light reflex Neck Neck: No lymphadenopathy Thyroid: Thyroid normal Chest Chest palpation & inspection: normal inspection of the chest Resp Effort & Inspection: normal respiratory effort and no audible wheezes Auscultation: clear to auscultation bilaterally, no crackles, no wheezes and lung sounds not diminished Cardio Rate: regular rate Rhythm: regular rhythm Peripheral pulses: radial pulses present and dorsalis pedis present GI Other: guaiac negative no prostate Palpation (GI): no masses Auscultation: normal bowel sounds and normoactive bowel sounds Rectal Exam - Male: Yes deferred Male General Exam: Yes normal external exam Skin General skin exam: no rashes or lesions noted Rashes: no rashes Neuro General: No confusion Cranial nerves: Yes Equal, round and reactive pupils present and Yes Normal hearing present Cognition (Neuro): normal cognition Gait exam (Neuro): Normal gait present Motor exam (neuro): 5/5 motor strength present throughout Deep tendon reflexes (DTR's): Right brachioradialis reflex intensity grade: 2+, Left brachioradialis reflex intensity grade: 2+, Right patellar reflex intensity grade: 2+ and Left patellar reflex intensity grade: 2+ Extrem General: No edema Assessment & Plan Assessment & Plan (1) Medicare annual wellness visit, subsequent: Code(s): Z00.00 - Encounter for general adult medical examination without abnormal findings Plan: Keep well hydrated eat healthy keep active and have adequate sleep. (2) Atrial fibrillation: Comment: Continue on anticoagulation. Code(s): I48.91 - Unspecified atrial fibrillation Qualifiers: Atrial fibrillation type: paroxysmal Qualified Code(s): I48.0 - Paroxysmal atrial fibrillation Plan: Continue with anticoagulation with Coumadin patient is followed up by Cardiology October 2022 last echocardiogram low normal ejection fraction with no valvular problem. Continue with metoprolol 75 mg once a day (3) Coronary artery disease: Comment: MRI November 2014 Dr. 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 transplanted heart: [place] heart Qualified Code(s): I25.10 - Atherosclerotic heart disease of [place] coronary artery without angina pectoris Plan: Control the cholesterol, weight, blood pressure, on anticoagulation (4) Hypertension: Code(s): I10 - Essential (primary) hypertension Qualifiers: Hypertension type: essential hypertension Qualified Code(s): I10 - Essential (primary) hypertension Plan: Continue with blood pressure medication. Decrease salt intake and exercise losartan 25 mg once a day with metoprolol 75 mg once a day (5) Hypercholesterolemia: Code(s): E78.00 - Pure hypercholesterolemia, unspecified Plan: Avoid fried foods, chicken skin, eggs, butter margarine, pastries and meat. Be it pork or beef they have a lot of cholesterol LDL goal of less than 70 and triglyceride of less than 150. Last blood work was in October 2022. (6) GERD (gastroesophageal reflux disease): Code(s): K21.9 - Gastro-esophageal reflux disease without esophagitis Qualifiers: Esophagitis presence: without esophagitis Qualified Code(s): K21.9 - Gastro-esophageal reflux disease without esophagitis Plan: Avoid the foods that causes that usually spicy foods, tomato products, juices, coffee, soda and foods that your sensitive to. After eating do not lie down, allow 3-4 hours before in lie down. And keep the head of bed above 30 degrees to avoid the acid from going up. (7) History of prostate cancer: Comment: September 2015 dr. Garg, Dr. Paz Code(s): Z85.46 - Personal history of malignant neoplasm of prostate Plan: Patient is being followed up by Urology (8) Anemia: Code(s): D64.9 - Anemia, unspecified Qualifiers: Anemia type: unspecified type Qualified Code(s): D64.9 - Anemia, unspecified Plan: Continue to monitor Orders: Orders Complete Blood Count Auto Diff Today I48.0 - Paroxysmal atrial fibrillation IRON PROFILE Today I48.0 - Paroxysmal atrial fibrillation Vitamin B12 and Folate Today I48.0 - Paroxysmal atrial fibrillation Lipid Panel Today E78.00 - Pure hypercholesterolemia, unspecified, I48.0 - Paroxysmal atrial fibrillation Magnesium Today I48.0 - Paroxysmal atrial fibrillation Comprehensive Met. Panel Today I48.0 - Paroxysmal atrial fibrillation Ferritin Today I48.0 - Paroxysmal atrial fibrillation Free T4 (Free Thyroxine) Today I48.0 - Paroxysmal atrial fibrillation B Type Natriuretic Peptide Today I48.0 - Paroxysmal atrial fibrillation Thyroid Stimulating Hormone Today I48.0 - Paroxysmal atrial fibrillation Prostate Specific Antigen Scr Today I48.0 - Paroxysmal atrial fibrillation Medications: Refilled metoprolol succinate ER 50 mg PO DAILY 90 tabs 3RF I10 - Essential (primary) hypertension Quality Reporting (2019) Depression/Bipolar (159/160/161/177) PHQ-9: Total score: 2 Coding Level of Care Code Medicare Subsequent (G0439) Diagnoses Medicare annual wellness visit, subsequent Z00.00 Paroxysmal atrial fibrillation I48.0 Atrial fibrillation type: paroxysmal Coronary artery disease involving [place] coronary artery of [place] heart without angina pectoris I25.10 Associated angina: without angina Coronary Disease-Associated Artery/Lesion type: [place] artery [place] vs. transplanted heart: [place] heart Essential hypertension I10 Hypertension type: essential hypertension Hypercholesterolemia E78.00 Gastroesophageal reflux disease without esophagitis K21.9 Esophagitis presence: without esophagitis History of prostate cancer Z85.46 Anemia, unspecified type D64.9 Anemia type: unspecified type
[2023-11-05 13:01] VITALS: BP 124/76; PULSE 86; O2SAT 98
== END 2023-11-05 13:41 | disposition home or self-care (01) ==
PROVIDERS: PCP Internal Medicine; Visit Provider Internal Medicine
DX: Z00.00 Encounter for general adult medical examination without abnormal findings (principal); I48.0 Paroxysmal atrial fibrillation; I25.10 Atherosclerotic heart disease of native coronary artery without angina pectoris; I10 Essential (primary) hypertension; E78.00 Pure hypercholesterolemia, unspecified; K21.9 Gastro-esophageal reflux disease without esophagitis; Z85.46 Personal history of malignant neoplasm of prostate; D64.9 Anemia, unspecified
CPT/HCPCS: G0439

== ENCOUNTER 2023-11-06 07:09 | Outpatient (REF) | payer MEDICARE, OTHER, SELFPAY ==
[2023-11-06 07:20] LABS: MANUAL DIFF FLAG NO
[2023-11-06 08:02] LABS: Basophils Absolute Auto 0.1 X10*3/uL (0.0-0.2); Basophils Percent Auto 0.8 % (0-2); Eosinophils Absolute Auto 0.2 X10*3/uL (0.0-0.4); Eosinophils Percent Auto 2.8 % (0-4); Hematocrit 40.9 % (42.0-52.0); Hemoglobin 13.9 g/dl (14.0-18.0); Imm Gran Abs Auto 0.01 X10*3/uL (0.00-0.03); Imm Gran Pct Auto 0.2 % (0.0-0.4); Lymphocytes Absolute Auto 2.1 X10*3/uL (1.2-4.9); Lymphocytes Percent Auto 32.5 % (20-40); Mean Corpuscular Hemoglobin 30.4 pg (27.0-33.0); Mean Corpuscular Volume 89.5 fL (80.0-98.0); Mean Platelet Volume 9.1 fL (9.4-12.4); Monocytes Absolute Auto 0.7 X10*3/uL (0.1-1.2); Monocytes Percent Auto 10.1 % (2-11); Neutrophils Absolute Auto 3.5 x10*3/uL (2.0-8.3); Neutrophils Percent Auto 53.6 % (45-73); Platelet Count 256 X10*3/uL (160-400); Red Blood Count 4.57 X10*6/uL (4.60-5.80); Red Cell Distribution Width 12.5 % (11.0-16.0); White Blood Count 6.5 X10*3/uL (4.8-10.8)
[2023-11-06 08:33] LABS: B Type Natriuretic Peptide 137 pg/mL (<100)
[2023-11-06 08:35] LABS: Alanine Aminotransferase 19 U/L (0-40); Alkaline Phosphatase 73 U/L (39-117); Anion Gap 13 (12-20); Aspartate Amino Transferase 22 U/L (5-37); Bilirubin Total 0.7 mg/dL (0.0-1.0); Blood Urea Nitrogen 20 mg/dL (9-16); Calcium 9.6 mg/dL (8.4-10.2); Carbon Dioxide 25 mmol/L (22-29); Chloride 109 mmol/L (96-108); Cholesterol 119 mg/dL (<200); Estimated Glomerular Filt Rate 59; Glucose Random 96 mg/dL (60-115); HDL Cholesterol 37 mg/dL (>40); Iron 64 mcg/dL (45-160); LDL Cholesterol Calculated 58 mg/dL (<100); Percent Iron Saturation 24 % (15-50); Potassium 4.2 mmol/L (3.3-5.1); Sodium 143 mmol/L (135-145); Total Iron Binding Capacity 267 mcg/dL (228-428); Total Protein 7.1 g/dL (6.5-8.0); Triglycerides 122 mg/dL (<150); Unsaturated Iron Binding 203 ug/dL
[2023-11-06 08:57] LABS: Ferritin 188 ng/mL (20-250); Free T4 (Free Thyroxine) 0.82 ng/dL (0.71-1.85); Thyroid Stimulating Hormone 2.21 uIU/mL (0.32-4.0)
[2023-11-06 09:17] LABS: Folate 12.7 ng/mL (> or = 4.0); Prostate Specific Antigen Scr < 0.10 ng/mL (<0.05-4.0); Vitamin B12 427 pg/mL (200-900)
== END 2023-11-06 07:10 | disposition home or self-care (01) ==
LOC: HO.LAB 07:09
PROVIDERS: PCP Internal Medicine; Visit Provider Internal Medicine
DX: I48.0 Paroxysmal atrial fibrillation (principal); E78.00 Pure hypercholesterolemia, unspecified; Z51.81 Encounter for therapeutic drug level monitoring; Z79.01 Long term (current) use of anticoagulants; Z12.5 Encounter for screening for malignant neoplasm of prostate
CPT/HCPCS: 36415; 80053; 80061; 82607; 82728; 82746; 83540; 83735; 83880; 84153; 84439; 84443; 85025; 85610; 99211

== ENCOUNTER 2023-11-06 07:59 | Outpatient (AMB) | payer MEDICARE, OTHER, SELFPAY ==
[2023-11-06 08:13] LABS: Prothrombin Time Whole Bld POC 31.1 sec (11.1-13.5); ~PT, ~INR - Anti Coag Clinic 2.6 (0.9-1.1)
--- NOTE | 2023-11-06 08:18 | MHC.OFFVISCO ---
Intake Intake Visit Reasons: Anticoagulation Allergies prednisone Allergy (Unknown, Verified 11/06/23 08:07) ? joint pain lisinopril Adverse Reaction (Intermediate, Verified 11/06/23 08:07) Dry throat Medication List - Last Reconciled 11/06/23 by Valentina Cameron RN losartan 25 mg PO DAILY metoprolol succinate ER 50 mg PO DAILY metoprolol succinate ER 25 mg PO DAILY re-xej-mqxzr-N4-bnrooka-gizbni 737-80-456-300 mcg (Centrum Silver Men) 1 tab PO DAILY rosuvastatin 20 mg PO DAILY warfarin 2.5 mg See Protocol PO DAILY Nursing Note PT.HAS RETURNED FROM WINTER IN [place] WHERE INR'S HAVE BEEN STABLE NO CP,SOB,DIET/MED CHANGES,FALLS OR SX OF BLEEDING. CONTINUE PRESERNT DOSE ANDF FOLLOW-UP IN 4 WEEKS. GOOD UNDERSTANDING OF DOSING INSTR. 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
== END 2023-11-06 08:20 | disposition home or self-care (01) ==
LOC: HO.ACS 07:59
PROVIDERS: PCP Internal Medicine; Visit Provider Internal Medicine
DX: Z79.01 Long term (current) use of anticoagulants (principal)

== ENCOUNTER 2023-12-04 08:01 | Outpatient (AMB) | payer MEDICARE, OTHER, SELFPAY ==
--- NOTE | 2023-12-04 08:15 | MHC.OFFVISCO ---
Intake Intake Visit Reasons: Anticoagulation Allergies prednisone Allergy (Unknown, Verified 12/04/23 08:07) ? joint pain lisinopril Adverse Reaction (Intermediate, Verified 12/04/23 08:07) Dry throat Medication List - Last Reconciled 12/04/23 by Karime Ibarra, RN losartan 25 mg PO DAILY meclizine 12.5 mg PO DAILY PRN metoprolol succinate ER 50 mg PO DAILY metoprolol succinate ER 25 mg PO DAILY pc-pax-zagym-P0-xryaslm-ttfhic 029-38-796-300 mcg (Centrum Silver Men) 1 tab PO DAILY rosuvastatin 20 mg PO DAILY warfarin 2.5 mg See Protocol PO DAILY Nursing Note INR: 2.6- in therapeutic range of 2-3 Medications and supplements reviewed- meclizine is prn No changes in health, diet, medications, or supplements, Denies any signs and symptoms of bleeding or bruising or clotting. Bleeding, bruising, clotting discussed Nutritional guidance given Dose: 2.5mg x 6, 1.25mg x 1 F/U INR: 4 weeks Patient verbalizes understanding of instructions given Anti-Coag Initial Assessment Social Hx Patient Tobacco Use Status: Never used Tobacco alcohol intake: current Alcohol intake frequency: a few times a month Coding Level of Care Code Est Patient Level 1 Diagnoses Current use of anticoagulant therapy Z79.01 Results AMB INR Fingerstick AMB INR Fingerstick 2.6 Last Edit by Karime Ibarra RN on 12/04/23 08:17 Assessment & Plan Assessment & Plan (1) Current use of anticoagulant therapy: Code(s): Z79.01 - custodial (current) use of anticoagulants Category: Medical
[2023-12-04 08:17] LABS: Prothrombin Time Whole Bld POC 30.8 sec (11.1-13.5); ~PT, ~INR - Anti Coag Clinic 2.6 (0.9-1.1)
== END 2023-12-04 08:23 | disposition home or self-care (01) ==
LOC: HO.ACS 08:01
PROVIDERS: PCP Internal Medicine; Visit Provider Internal Medicine
DX: Z79.01 Long term (current) use of anticoagulants (principal)

== ENCOUNTER → 2023-12-04 08:01 | Outpatient (BNVA) | payer MEDICARE, OTHER, SELFPAY | PROVIDERS: PCP Internal Medicine; Visit Provider Internal Medicine | DX: I48.0 Paroxysmal atrial fibrillation (principal); Z79.01 Long term (current) use of anticoagulants; Z51.81 Encounter for therapeutic drug level monitoring | CPT/HCPCS: 85610; 99211 ==

== ENCOUNTER 2024-01-01 08:04 | Outpatient (AMB) | payer MEDICARE, OTHER, SELFPAY ==
[2024-01-01 08:13] LABS: Prothrombin Time Whole Bld POC 30.1 sec (11.1-13.5); ~PT, ~INR - Anti Coag Clinic 2.5 (0.9-1.1)
--- NOTE | 2024-01-01 08:13 | MHC.OFFVISCO ---
Intake Intake Visit Reasons: Anticoagulation Allergies prednisone Allergy (Unknown, Verified 01/01/24 08:08) ? joint pain lisinopril Adverse Reaction (Intermediate, Verified 01/01/24 08:08) Dry throat Medication List - Last Reconciled 01/01/24 by Karime Ibarra RN losartan 25 mg PO DAILY meclizine 12.5 mg PO DAILY PRN metoprolol succinate ER 50 mg PO DAILY metoprolol succinate ER 25 mg PO DAILY ud-pnb-cxvro-M5-znikyuu-wmokyd 559-66-803-300 mcg (Centrum Silver Men) 1 tab PO DAILY rosuvastatin 20 mg PO DAILY warfarin 2.5 mg See Protocol PO DAILY Nursing Note INR: 2.5- in therapeutic range of 2-3 Medications and supplements reviewed- no changes No changes in health, diet, medications, or supplements, Denies any signs and symptoms of bleeding or bruising or clotting. 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
== END 2024-01-01 08:18 | disposition home or self-care (01) ==
LOC: HO.ACS 08:04
PROVIDERS: PCP Internal Medicine; Visit Provider Internal Medicine
DX: Z79.01 Long term (current) use of anticoagulants (principal)

== ENCOUNTER → 2024-01-01 08:04 | Outpatient (BNVA) | payer MEDICARE, OTHER, SELFPAY | PROVIDERS: PCP Internal Medicine; Visit Provider Internal Medicine | DX: I48.0 Paroxysmal atrial fibrillation (principal); Z51.81 Encounter for therapeutic drug level monitoring; Z79.01 Long term (current) use of anticoagulants | CPT/HCPCS: 85610; 99211 ==

== ENCOUNTER 2024-01-31 08:02 | Outpatient (AMB) | payer MEDICARE, OTHER, SELFPAY ==
[2024-01-31 08:27] LABS: Prothrombin Time Whole Bld POC 24.2 sec (11.1-13.5)
--- NOTE | 2024-01-31 08:36 | MHC.OFFVISCO ---
Intake Intake Visit Reasons: Anticoagulation Allergies prednisone Allergy (Unknown, Verified 01/31/24 08:20) ? joint pain lisinopril Adverse Reaction (Intermediate, Verified 01/31/24 08:20) Dry throat Medication List - Last Reconciled 01/31/24 by Valentina Cameron RN losartan 25 mg PO DAILY meclizine 12.5 mg PO DAILY PRN metoprolol succinate ER 50 mg PO DAILY metoprolol succinate ER 25 mg PO DAILY py-mxg-tzriz-Q6-pxqvrct-beioge 700-96-409-300 mcg (Centrum Silver Men) 1 tab PO DAILY rosuvastatin 20 mg PO DAILY warfarin 2.5 mg See Protocol PO DAILY Nursing Note NO CP,SOB,DIET/MED CHANGES,FALLS OR SX OF BLEEDING. CONTINUE PRESENT DOSE AND FOLLOW-UP IN 4 WEEKS. GOOD UNDERSTNDING OF DOSING INSTR. 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
== END 2024-01-31 08:37 | disposition home or self-care (01) ==
LOC: HO.ACS 08:02
PROVIDERS: PCP Internal Medicine; Visit Provider Internal Medicine
DX: Z79.01 Long term (current) use of anticoagulants (principal)

== ENCOUNTER → 2024-01-31 08:02 | Outpatient (BNVA) | payer MEDICARE, OTHER, SELFPAY | PROVIDERS: PCP Internal Medicine; Visit Provider Internal Medicine | DX: I48.0 Paroxysmal atrial fibrillation (principal); Z79.01 Long term (current) use of anticoagulants; Z51.81 Encounter for therapeutic drug level monitoring | CPT/HCPCS: 85610; 99211 ==

== ENCOUNTER 2024-03-03 08:05 | Outpatient (AMB) | payer MEDICARE, OTHER, SELFPAY ==
--- NOTE | 2024-03-03 08:10 | MHC.OFFVISCO ---
Intake Intake Visit Reasons: Anticoagulation Allergies prednisone Allergy (Unknown, Verified 03/03/24 08:06) ? joint pain lisinopril Adverse Reaction (Intermediate, Verified 03/03/24 08:06) Dry throat Medication List - Last Reconciled 03/03/24 by Karime Ibarra RN losartan 25 mg PO DAILY meclizine 12.5 mg PO DAILY PRN metoprolol succinate ER 50 mg PO DAILY metoprolol succinate ER 25 mg PO DAILY or-cem-llkpu-W1-fvmmwqn-wbdkbj 333-95-934-300 mcg (Centrum Silver Men) 1 tab PO DAILY rosuvastatin 20 mg PO DAILY warfarin 2.5 mg See Protocol PO DAILY Nursing Note INR: 2.2- in therapeutic range of 2-3 Medications and supplements reviewed- no changes No changes in health, diet, medications, or supplements, Denies any signs and symptoms of bleeding or bruising or clotting. 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
[2024-03-03 08:11] LABS: Prothrombin Time Whole Bld POC 26.6 sec (11.1-13.5); ~PT, ~INR - Anti Coag Clinic 2.2 (0.9-1.1)
== END 2024-03-03 08:17 | disposition home or self-care (01) ==
LOC: HO.ACS 08:05
PROVIDERS: PCP Internal Medicine; Visit Provider Internal Medicine
DX: Z79.01 Long term (current) use of anticoagulants (principal)

== ENCOUNTER → 2024-03-03 08:05 | Outpatient (BNVA) | payer MEDICARE, OTHER, SELFPAY | PROVIDERS: PCP Internal Medicine; Visit Provider Internal Medicine | DX: I48.0 Paroxysmal atrial fibrillation (principal); Z79.01 Long term (current) use of anticoagulants; Z51.81 Encounter for therapeutic drug level monitoring | CPT/HCPCS: 85610; 99211 ==

== ENCOUNTER 2024-04-02 08:01 | Outpatient (AMB) | payer MEDICARE, OTHER, SELFPAY ==
[2024-04-02 08:08] LABS: Prothrombin Time Whole Bld POC 26.4 sec (11.1-13.5); ~PT, ~INR - Anti Coag Clinic 2.2 (0.9-1.1)
--- NOTE | 2024-04-02 08:09 | MHC.OFFVISCO ---
Intake Intake Visit Reasons: Anticoagulation Allergies prednisone Allergy (Unknown, Verified 04/02/24 08:02) ? joint pain lisinopril Adverse Reaction (Intermediate, Verified 04/02/24 08:02) Dry throat Medication List - Last Reconciled 04/02/24 by Lubna Menard RN losartan 25 mg PO DAILY meclizine 12.5 mg PO DAILY PRN metoprolol succinate ER 50 mg PO DAILY st-hik-yviea-R8-jywjrdb-xfujac 456-23-371-300 mcg (Centrum Silver Men) 1 tab PO DAILY rosuvastatin 20 mg PO DAILY warfarin 2.5 mg See Protocol PO DAILY Nursing Note INR: 2.2 in therapeutic range Medications and supplements reviewed- metoprolol decreased, has been on joint supplement for long time will add to EMR No changes in health, diet, medications, or supplements, Denies any signs and symptoms of bleeding or bruising or clotting. 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
== END 2024-04-02 08:14 | disposition home or self-care (01) ==
LOC: HO.ACS 08:01
PROVIDERS: PCP Internal Medicine; Visit Provider Internal Medicine
DX: Z79.01 Long term (current) use of anticoagulants (principal)

== ENCOUNTER → 2024-04-02 08:01 | Outpatient (BNVA) | payer MEDICARE, OTHER, SELFPAY | PROVIDERS: PCP Internal Medicine; Visit Provider Internal Medicine | DX: I48.0 Paroxysmal atrial fibrillation (principal); Z79.01 Long term (current) use of anticoagulants; Z51.81 Encounter for therapeutic drug level monitoring | CPT/HCPCS: 85610; 99211 ==

== ENCOUNTER 2024-06-10 08:01 | Outpatient (AMB) | payer MEDICARE, OTHER, SELFPAY ==
[2024-06-10 08:11] LABS: Prothrombin Time Whole Bld POC 24.4 sec (11.1-13.5)
--- NOTE | 2024-06-10 08:11 | MHC.OFFVISCO ---
Intake Intake Visit Reasons: Anticoagulation Allergies prednisone Allergy (Unknown, Verified 06/10/24 08:05) ? joint pain lisinopril Adverse Reaction (Intermediate, Verified 06/10/24 08:05) Dry throat Medication List - Last Reconciled 06/10/24 by Valentina Cameron RN [hyaluronic acid PO] losartan 25 mg PO DAILY meclizine 12.5 mg PO DAILY PRN metoprolol succinate ER 50 mg PO DAILY [id number]-[id number]-[id number]-[id number] [id number] mcg (Centrum Silver Men) 1 tab PO DAILY rosuvastatin 20 mg PO DAILY warfarin 2.5 mg See Protocol PO DAILY Nursing Note NO CP,SOB,DIET/MED CHANGES,FALLS OR SX OF BLEEDING. CONTINUE PRESENT DOSE AND FOLLOW-UP IN 4 WEEKS IN [place]. PT.TO CALL [facility] WHEN HE RETURNS IN THE SPRING FOR FOLLOW-UP HERE. 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
== END 2024-06-10 08:19 | disposition home or self-care (01) ==
LOC: HO.ACS 08:01
PROVIDERS: PCP Internal Medicine; Visit Provider Internal Medicine
DX: Z79.01 Long term (current) use of anticoagulants (principal)

== ENCOUNTER → 2024-06-10 08:01 | Outpatient (BNVA) | payer MEDICARE, OTHER, SELFPAY | PROVIDERS: PCP Internal Medicine; Visit Provider Internal Medicine | DX: I25.10 Atherosclerotic heart disease of native coronary artery without angina pectoris (principal); K21.9 Gastro-esophageal reflux disease without esophagitis; E78.00 Pure hypercholesterolemia, unspecified; I10 Essential (primary) hypertension; Z79.899 Other long term (current) drug therapy; I25.2 Old myocardial infarction; Z85.46 Personal history of malignant neoplasm of prostate; I48.0 Paroxysmal atrial fibrillation; Z79.01 Long term (current) use of anticoagulants; Z51.81 Encounter for therapeutic drug level monitoring | CPT/HCPCS: 85610; 96127; 99211; 99212 ==

== ENCOUNTER 2024-06-10 08:25 | Outpatient (AMB) | payer MEDICARE, OTHER, SELFPAY ==
[2024-06-10 08:39] VITALS: BP 110/78; PULSE 78; O2SAT 97; BMI 28.6
--- NOTE | 2024-06-10 08:39 | MHC.PC.OV ---
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 joint pain lisinopril Adverse Reaction (Intermediate, Verified 06/10/24 08:40) Dry throat Medication List - Last Reconciled 06/10/24 by Edwige Delgadillo PA-C [hyaluronic acid PO] losartan 25 mg PO DAILY meclizine 12.5 mg PO DAILY PRN metoprolol succinate ER 50 mg PO DAILY [id number]-[id number]-W9-xewkisy-cxeppe [id number] mcg (Centrum Silver Men) 1 tab PO DAILY rosuvastatin 20 mg PO DAILY warfarin 2.5 mg See Protocol PO DAILY Tobacco use date assessed: 06/10/24 Fall risk assessment: No Falls in past year Last assessed Fall Risk: 06/10/24 Dental Screening Dental Screen Date: 06/10/24 Did you have a dental visit in the last 12 months?: No Did you have a dental problem in the last 6 months where you did not have access to dental care?: No Was dental information given to patient?: No HPI Coronary artery disease HPI Details 79-year-old male with past medical history of prostate cancer 2015, atrial fibrillation, coronary artery disease with STEMI october 2015, hypertension, hypercholesterolemia, GERD last seen October 2023 coming in for follow up. In review of the notes patient was seen by [facility] 02/10/2024. Patient was seen by [facility] 01/01/2024 advised to continue with PSA monitoring. Patient follows with [facility] with Dr. Johny melo and was last seen January. He does mentioned he flew back from [place] on Saturday night and while walking through the airport had mild chest pain with shortness of breath that resolved with rest. He has had 1 episode previously which was several years ago. He has no other concerns today. [facility] Medical History (Updated 11/05/23 @ 13:11 by Pia Philippe MD) Constipation Hyperpigmentation History of renal calculi Fatty liver GERD (gastroesophageal reflux disease) Osteoarthritis Hypercholesterolemia History of prostate cancer Atrial fibrillation Coronary artery disease Hypertension Surgical History History of cataract surgery History of prostatectomy History of cholecystectomy History of tonsillectomy Family History Father Hypertension Mother Cancer Social History Housing: House Alcohol intake: current Alcohol intake frequency: a few times a month Comment: in [place] 2 a week Patient Tobacco Use Status: Never used Tobacco e-Cigarette/Vaping Use: Never Used Second Hand Smoke Exposure: No Current occupational status: retired Cognitive needs: No Hearing needs: No Vision needs: Yes Questionnaire PHQ-9 Over the last 2 weeks, how often have you been bothered by any of the following problems? 1. Little interest or pleasure in doing things: not at all 2. Feeling down, depressed, or hopeless: several days 3. Trouble falling or staying asleep, or sleeping too much: not at all 4. Feeling tired or having little energy: several days 5. Poor appetite or overeating: not at all 6. Feeling bad about yourself - or that you are a failure or have let yourself or your family down: not at all 7. Trouble concentrating on things, such as reading the newspaper or watching television: not at all 8. Moving or speaking so slowly that other people could have noticed. Or the opposite - being so fidgety or restless that you have been moving around a lot more than usual: not at all 9. Thoughts that you would be better off or of hurting yourself in some way: not at all Total score: 2 Depression Screening Interpretation: Negative Depression Screening Done: Yes Source: Developed by Drs. Sedrick Escobar, Marge Weiner, Saleem Serrano and colleagues, with an educational reva from [employer]. Thrive Questionnaire Date Thrive assessed: 06/10/24 I am a: Patient What is your living situation today?: I have a steady place to live Within the past 12 months, did the food you bought not last and you didn't have the money to get more?: Never true Within the past 12 months, did you worry whether your food would run out before you got money to buy more?: Never true Do you have trouble paying for medicines?: No Do you have trouble getting transportation to medical appointments?: No Do you have trouble paying your heating and electricity bill?: No Do you have trouble taking care of your child, family member or friend?: No Do you have trouble with day-to-day activities such as bathing, preparing meals, shopping, managing finances, etc.?: No Are you currently unemployed and looking for a job?: No Are you interested in more education?: No Please select the resources that you would like help with: None Currently or been in a relationship where the following occur: No concerns reported THRIVE Score: 0 AUDIT C Alcohol Use Questionnaire (AUDIT-C) 2. How many drinks containing alcohol do you have on a typical day when you are drinking?: 1 or 2 3. How often do you have six or more drinks on one occasion?: Never Total Score: 0 MOISES-7 AMB Questionnaire MOISES-7 Date MOISES - 7 assessed: 06/10/24 Feeling nervous, anxious, or on edge: 0 = Not at all Not being able to stop or control worryin = Not at all Worrying too much about different things: 0 = Not at all Trouble relaxin = Not at all Being so restless that it is hard to sit still: 0 = Not at all Becoming easily annoyed or irritable: 0 = Not at all Feeling afraid as if something awful might happen: 0 = Not at all Total MOISES-7 score (0-4 normal; 5-9 mild; 10-14 moderate; 15-21 severe): 0 Source: Developed by Drs. Sedrick Escobar, Marge Weiner, Saleem Serrano and colleagues, with an educational reva from [employer]. Review of Systems Const Denies body aches, Denies chills, Denies fever(s), Denies headache(s) and Denies poor appetite Eyes Reports no additional complaints ENT Denies dysphagia, Denies dizziness, Denies headache(s) and Denies odynophagia Card Details: One episode of chest pain on with exertion Denies chest pain, Denies syncope, Denies edema, Denies irregular heart rhythm, Denies lightheadedness and Denies dyspnea Resp Details: 1 episode of dyspnea on exertion Denies cough and Denies dyspnea GI Denies abdominal pain, Denies constipation, Denies dysphagia, Denies diarrhea, Denies nausea, Denies odynophagia and Denies vomiting Reports no additional complaints Musc Reports no additional complaints and Denies abnormal gait Skin/Breast Reports system reviewed and no additional complaints, except as documented Neuro Denies abnormal gait, Denies dizziness, Denies syncope and Denies headache(s) Psych Reports no additional complaints Physical exam (Primary Care) Vital Signs: Oxygen Delivery Method Room Air 06/10/24 08:39 BMI result Body Mass Index 28.6 Tobacco/Smoking Status: Tobacco use Status Tobacco use date assessed 06/10/24 06/10/24 08:43 Patient Tobacco Use Status Never used Tobacco 06/10/24 08:43 e-Cigarette/Vaping Use Never Used 06/10/24 08:43 PHQ-9: PHQ-9 Score PHQ-9: Total score 2 06/10/24 08:43 Depression Screening Interpretation: Negative Thrive Assessment: Date of Thrive Assessment Date Thrive assessed 06/10/24 06/10/24 08:43 Currently or been in a relationship where the following occur: No concerns reported Const General: cooperative, healthy appearing, comfortable and no acute distress Orientation/consciousness: patient oriented x3 HENMT Head: Yes normocephalic Ears: hearing grossly normal bilaterally General nose exam: Normal external nose present Eyes General: appearance normal, both eyes and all related structures Conjunctivae: conjunctivae normal Neck Neck: Yes full ROM and Yes no lymphadenopathy Resp Effort & Inspection: normal respiratory effort Auscultation: clear to auscultation bilaterally, no crackles, no rales, no rhonchi and no wheezes Cardio Rate: regular rate Rhythm: regular rhythm Skin General skin exam: no rashes or lesions noted Neuro General: patient oriented x3 Gait exam (Neuro): Normal gait present Extrem General: Yes normal to inspection, Yes full ROM and No edema Psych Affect: normal affect Attitude: cooperative Insight: Good insight present (Psych) Judgement: Good judgement present (Psych) Coding Level of Care Code Est Pt Level 4 (06590) Diagnoses Gastroesophageal reflux disease without esophagitis K21.9 Esophagitis presence: without esophagitis Hypercholesterolemia E78.00 History of prostate cancer Z85.46 Paroxysmal atrial fibrillation I48.0 Atrial fibrillation type: paroxysmal Coronary artery disease involving bois [place]te coronary artery of [place] heart without angina pectoris I25.10 Coronary Disease-Associated Artery/Lesion type: [place] artery [place] vs. transplanted heart: [place] heart Associated angina: without angina Essential hypertension I10 Hypertension type: essential hypertension Assessment & Plan Assessment & Plan (1) GERD (gastroesophageal reflux disease): Code(s): K21.9 - Gastro-esophageal reflux disease without esophagitis Category: Medical Qualifiers: Esophagitis presence: without esophagitis Qualified Code(s): K21.9 - Gastro-esophageal reflux disease without esophagitis Plan: Avoid trigger foods such as citrus, tomato products, soda, caffeine, spicy foods and other foods that may be irritating to your stomach. Avoid laying flat 3-4 hours after eating and elevate the head of the bed 30 degrees to prevent acid from moving into the esophagus. (2) Hypercholesterolemia: Code(s): E78.00 - Pure hypercholesterolemia, unspecified Category: Medical Plan: Avoid foods that are high in cholesterol such as red meat, fried foods, eggs and baked goods. Triglyceride goal of less than 150 and LDL goal of less than 70. Continue on rosuvastatin 20 mg (3) History of prostate cancer: Comment: September 2015 dr. Garg, Dr. Paz Code(s): Z85.46 - Personal history of malignant neoplasm of prostate Category: Medical Plan: Continue to follow with Urology and routine PSAs (4) Atrial fibrillation: Comment: Continue on anticoagulation. Code(s): I48.91 - Unspecified atrial fibrillation Category: Medical Qualifiers: Atrial fibrillation type: paroxysmal Qualified Code(s): I48.0 - Paroxysmal atrial fibrillation Plan: Currently on anticoagulation and metoprolol. Continue to follow with Cardiology. (5) Coronary artery disease: Comment: MRI November 2014 Dr. Donnie Melo [facility] [employer] stress test July 02 1018- Code(s): I25.10 - Atherosclerotic heart disease of [place] coronary artery without angina pectoris Category: Medical Qualifiers: Coronary Disease-Associated Artery/Lesion type: [place] artery [place] vs. transplanted heart: [place] heart Associated angina: without angina Qualified Code(s): I25.10 - Atherosclerotic heart disease of [place] coronary artery without angina pectoris Plan: Patient currently following with [facility]. Advised patient to reach out to prototype technician in regards to his recent dyspnea on exertion. Patient may require updated stress test or additional imaging. Discussed with patient if he needs our office to order the testing that can be arranged but would prefer if he reach out to the prototype technician for evaluation before he leaves for [place]. (6) Hypertension: Code(s): I10 - Essential (primary) hypertension Category: Medical Qualifiers: Hypertension type: essential hypertension Qualified Code(s): I10 - Essential (primary) hypertension Plan: Continue on current blood pressure medication. Avoid salt intake and encourage healthy diet and regular exercise. Plan This note was constructed using voice recognition software. While every effort has been made to ensure accuracy and supervisor display fabrication, still areas may have been included sometimes these areas may affect the content or meeting of the given symptoms. Total time spent caring for the patient today was 20 minutes. This includes time spent before the visit reviewing the chart, time spent during the visit, and time spent after the visit and documentation. Orders: Orders Comprehensive Met. Panel Today E78.00 - Pure hypercholesterolemia, unspecified, N28.9 - Disorder of kidney and ureter, unspecified Lipid Panel Today E78.00 - Pure hypercholesterolemia, unspecified Medications: Refilled rosuvastatin 20 mg PO DAILY 90 tabs 3RF E78.00 - Pure hypercholesterolemia, unspecified losartan 25 mg PO DAILY 90 tabs 4RF I10 - Essential (primary) hypertension
== END 2024-06-10 09:18 | disposition home or self-care (01) ==
PROVIDERS: PCP Internal Medicine
DX: K21.9 Gastro-esophageal reflux disease without esophagitis (principal); E78.00 Pure hypercholesterolemia, unspecified; Z85.46 Personal history of malignant neoplasm of prostate; I48.0 Paroxysmal atrial fibrillation; I25.10 Atherosclerotic heart disease of native coronary artery without angina pectoris; I10 Essential (primary) hypertension

== ENCOUNTER 2024-06-19 07:03 | Outpatient (REF) | payer MEDICARE, OTHER, SELFPAY ==
[2024-06-19 08:12] LABS: Alanine Aminotransferase 27 U/L (0-40); Albumin Level 4.2 g/dL (3.5-5.0); Alkaline Phosphatase 86 U/L (39-117); Anion Gap 14 (12-20); Aspartate Amino Transferase 29 U/L (5-37); Bilirubin Total 0.8 mg/dL (0.0-1.0); Blood Urea Nitrogen 23 mg/dL (9-16); Calcium 9.7 mg/dL (8.4-10.2); Carbon Dioxide 26 mmol/L (22-29); Chloride 109 mmol/L (96-108); Cholesterol 132 mg/dL (<200); Estimated Glomerular Filt Rate 53; Glucose Random 98 mg/dL (60-115); HDL Cholesterol 41 mg/dL (>40); LDL Cholesterol Calculated 65 mg/dL (<100); Potassium 4.7 mmol/L (3.3-5.1); Sodium 144 mmol/L (135-145); Total Protein 7.3 g/dL (6.5-8.0); Triglycerides 133 mg/dL (<150)
== END 2024-06-19 07:04 | disposition home or self-care (01) ==
LOC: HO.LAB 07:03
PROVIDERS: Visit Provider Internal Medicine
DX: E78.00 Pure hypercholesterolemia, unspecified (principal); N28.9 Disorder of kidney and ureter, unspecified
CPT/HCPCS: 36415; 80053; 80061

== ENCOUNTER 2024-11-24 07:56 | Outpatient (AMB) | payer MEDICARE, OTHER, SELFPAY ==
[2024-11-24 08:11] LABS: Prothrombin Time Whole Bld POC 22.7 sec (11.1-13.5); ~PT, ~INR - Anti Coag Clinic 1.9 (0.9-1.1)
--- NOTE | 2024-11-24 08:16 | MHC.OFFVISCO ---
Intake Intake Visit Reasons: Anticoagulation Allergies prednisone Allergy (Unknown, Verified 11/24/24 08:04) ? joint pain lisinopril Adverse Reaction (Intermediate, Verified 11/24/24 08:04) Dry throat Medication List - Last Reconciled 11/24/24 by Violeta De Anda, RN [hyaluronic acid PO] losartan 25 mg PO DAILY meclizine 12.5 mg PO DAILY PRN metoprolol succinate ER 50 mg PO DAILY [id number]-[id number]-E0-[id number]-afnbvl 395-43-207-300 mcg (Centrum Silver Men) 1 tab PO DAILY rosuvastatin 20 mg PO DAILY warfarin 2.5 mg See Protocol PO DAILY Nursing Note INR: 1.9 out of therapeutic range of 2-3 Medications and supplements reviewed No changes in health, diet, medications, or supplements, Denies any signs and symptoms of bleeding or bruising or clotting. Bleeding, bruising, clotting discussed Nutritional guidance given to avoid greens today and to focus on foods that raise the INR. 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
== END 2024-11-24 08:20 | disposition home or self-care (01) ==
LOC: HO.ACS 07:56
PROVIDERS: Visit Provider Internal Medicine Medical Oncology
DX: Z79.01 Long term (current) use of anticoagulants (principal)

== ENCOUNTER → 2024-11-24 07:56 | Outpatient (BNVA) | payer MEDICARE, OTHER, SELFPAY | PROVIDERS: Visit Provider Internal Medicine Medical Oncology | DX: I48.0 Paroxysmal atrial fibrillation (principal); Z79.01 Long term (current) use of anticoagulants; Z51.81 Encounter for therapeutic drug level monitoring | CPT/HCPCS: 85610; 99211 ==

== ENCOUNTER 2024-12-08 07:13 | Outpatient (REF) | payer MEDICARE, OTHER, SELFPAY ==
--- OUTSIDE RECORDS SUMMARY | 2024-12-08 07:16 | XMS_ITS | Patient Health Record ---
Author Organization [facility] Address [address] [place] [address] Care Team Providers Care Manager Meeting Name Role Phone Michel BATISTA, [facility] Primary Care Provider Unavail able Vanessa Nelson Unavailable [phone] Reason For Referral No Information Medications Medication SIG (Take, Route, Frequency, Duration) Notes Start Date End Date Status Digoxin Active Simvastatin 5 MG 1 tablet every eveni ng Orally Once a day for 30 day(s) Active Centrum Silver Activ e Olamide Aspirin EC Low Dose Active Aleve 220 MG 1 tablet as needed O rally every 12 hrs Active Fish Oil Active hydroCHLOROthiazide Active Problems Problem Type SNOMED Code ICD Code Onset Dates Problem Status W/U Status Risk Notes Problem Tibialis tendinitis (19187132) Posterior Tibial Tendonitis (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.72) Active confirmed Problem Edema (77793439) Edema (782.3) Active confirmed Problem Pain in Limb (729.5) Active confirmed Plan Of Treatment Pending Test Test Name Order Date X ray : Foot, right 3V 02/25/2012 Insurance Providers Payer Name Payer Address Payer Phone Subscriber Number Group Number Insured Name Patient Relationship to Insured Coverage Start Date Coverage End Date Medicare [facility] [address] [place] [phone] [id number] Guero Real Self - patient is the insured [facility] [address] [facility] [id number] Guero Real Self - patient is the insured Medical (General) History Medical History History ICD Code Cholesterol
[2024-12-08 07:29] LABS: MANUAL DIFF FLAG NO
[2024-12-08 07:47] LABS: Basophils Absolute Auto 0.1 X10*3/uL (0.0-0.2); Basophils Percent Auto 0.6 % (0-2); Eosinophils Absolute Auto 0.1 X10*3/uL (0.0-0.4); Eosinophils Percent Auto 1.3 % (0-4); Hematocrit 41.3 % (42.0-52.0); Hemoglobin 13.5 g/dl (14.0-18.0); Imm Gran Abs Auto 0.02 X10*3/uL (0.00-0.03); Imm Gran Pct Auto 0.2 % (0.0-0.4); Lymphocytes Absolute Auto 1.6 X10*3/uL (1.2-4.9); Lymphocytes Percent Auto 17.8 % (20-40); Mean Corpuscular HGB Conc 32.7 g/dl (31.0-36.0); Mean Corpuscular Volume 88.6 fL (80.0-98.0); Mean Platelet Volume 9.3 fL (9.4-12.4); Monocytes Absolute Auto 0.7 X10*3/uL (0.1-1.2); Neutrophils Absolute Auto 6.3 x10*3/uL (2.0-8.3); Neutrophils Percent Auto 72.1 % (45-73); Platelet Count 224 X10*3/uL (160-400); Red Blood Count 4.66 X10*6/uL (4.60-5.80); Red Cell Distribution Width 13.1 % (11.0-16.0); White Blood Count 8.7 X10*3/uL (4.8-10.8)
[2024-12-08 07:56] LABS: Estimated Average Glucose 111 mg/dL; Hemoglobin A1c % 5.5 % (<6.0)
[2024-12-08 08:24] LABS: Alanine Aminotransferase 20 U/L (0-40); Albumin Level 4.3 g/dL (3.5-5.0); Alkaline Phosphatase 77 U/L (39-117); Anion Gap 11 (12-20); Aspartate Amino Transferase 31 U/L (5-37); Bilirubin Total 0.7 mg/dL (0.0-1.0); Blood Urea Nitrogen 21 mg/dL (9-16); Calcium 9.6 mg/dL (8.4-10.2); Carbon Dioxide 27 mmol/L (22-29); Chloride 110 mmol/L (96-108); Cholesterol 118 mg/dL (<200); Estimated Glomerular Filt Rate 54; Glucose Random 96 mg/dL (60-115); HDL Cholesterol 38 mg/dL (>40); LDL Cholesterol Calculated 56 mg/dL (<100); Potassium 4.8 mmol/L (3.3-5.1); Sodium 143 mmol/L (135-145); Total Protein 6.8 g/dL (6.5-8.0); Triglycerides 122 mg/dL (<150)
[2024-12-08 08:42] LABS: Free T4 (Free Thyroxine) 0.96 ng/dL (0.71-1.85); Vitamin D 25-OH Total 82.7 ng/mL (>30)
[2024-12-08 08:57] LABS: Microalbum/Creatinine Ratio Ur 13.2 ug/mg cr (<30)
[2024-12-08 09:08] LABS: Folate 11.2 ng/mL (> or = 4.0); Vitamin B12 483 pg/mL (200-900)
[2024-12-12 18:49] LABS: PSA, Ultra Sensitive 0.08 ng/mL
== END 2024-12-08 07:14 | disposition home or self-care (01) ==
LOC: HO.LAB 07:13
PROVIDERS: PCP Internal Medicine
DX: Z00.00 Encounter for general adult medical examination without abnormal findings (principal); N28.9 Disorder of kidney and ureter, unspecified; E78.00 Pure hypercholesterolemia, unspecified; E11.9 Type 2 diabetes mellitus without complications; I25.10 Atherosclerotic heart disease of native coronary artery without angina pectoris; Z13.21 Encounter for screening for nutritional disorder; D64.9 Anemia, unspecified; Z12.5 Encounter for screening for malignant neoplasm of prostate
CPT/HCPCS: 36415; 80053; 80061; 82043; 82306; 82570; 82607; 82746; 83036; 84153; 84439; 85025; 85610; 99211

== ENCOUNTER 2024-12-08 08:02 | Outpatient (AMB) | payer MEDICARE, OTHER, SELFPAY ==
[2024-12-08 08:09] LABS: Prothrombin Time Whole Bld POC 26.1 sec (11.1-13.5); ~PT, ~INR - Anti Coag Clinic 2.2 (0.9-1.1)
--- NOTE | 2024-12-08 08:13 | MHC.OFFVISCO ---
Intake Intake Visit Reasons: Anticoagulation Allergies prednisone Allergy (Unknown, Verified 12/08/24 08:02) ? joint pain lisinopril Adverse Reaction (Intermediate, Verified 12/08/24 08:02) Dry throat Medication List - Last Reconciled 12/08/24 by Violeta De Anda, RN [hyaluronic acid PO] losartan 25 mg PO DAILY meclizine 12.5 mg PO DAILY PRN metoprolol succinate ER 50 mg PO DAILY [id number]-shk-fzevf-F2-mlednko-uhmulj 181-50-380-300 mcg (Centrum Silver Men) 1 tab PO DAILY rosuvastatin 20 mg PO DAILY warfarin 2.5 mg See Protocol PO DAILY Nursing Note INR: 2.2 in therapeutic range of 2-3 Medications and supplements reviewed No changes in health, diet, medications, or supplements, Denies any signs and symptoms of bleeding or bruising or clotting. Bleeding, bruising, clotting discussed Nutritional guidance given Dose: increase today's dose to 2.5mg (1.25mg) then 2.5mg X 6 days and 1.25mg X 1 day (Tu) F/U INR: 5 weeks Patient verbalizes understanding of instructions given Anti-Coag Initial Assessment Social Hx Patient Tobacco Use Status: Never used Tobacco alcohol intake: current Alcohol intake frequency: a few times a month Coding Level of Care Code Est Patient Level 1 Diagnoses Current use of anticoagulant therapy Z79.01 Results AMB INR Fingerstick AMB INR Fingerstick 2.2 Last Edit by Violeta De Anda, RN on 12/08/24 08:09 interface delay Assessment & Plan Assessment & Plan (1) Current use of anticoagulant therapy: Code(s): Z79.01 - detention (current) use of anticoagulants Category: Medical
== END 2024-12-08 08:14 | disposition home or self-care (01) ==
LOC: HO.ACS 08:02
PROVIDERS: PCP Internal Medicine; Visit Provider Internal Medicine Medical Oncology
DX: Z79.01 Long term (current) use of anticoagulants (principal)

== ENCOUNTER 2024-12-09 08:19 | Outpatient (AMB) | payer MEDICARE, OTHER, SELFPAY ==
--- NOTE | 2024-12-09 08:24 | A.OFFPC_ITS ---
Vital Signs 12/09/24 08:26 Height 5 ft 10 in Weight 198 lb 4 oz BMI 28.4 BP 112/76 Blood Pressure Location Lt brachial Position Sitting Pulse 78 Pulse Source Pulse Oximeter Temp 97.1 F Temp Source Temporal Artery Scan Pulse Oximetry (%) 96 Oxygen Delivery Method Room Air Intake Visit Reasons: f/u CAD Intake Note: Patient is here to follow up on CAD. Forge Press Operator Required: No Project Structural Engineer: Not Required per policy Accompanied by: Self / Same As Patient Allergies prednisone Allergy (Unknown, Verified 12/09/24 08:25) ? joint pain lisinopril Adverse Reaction (Intermediate, Verified 12/09/24 08:25) Dry throat Medication List - Last Reconciled 12/09/24 by Pia Philippe MD [hyaluronic acid PO] losartan 25 mg PO DAILY meclizine 12.5 mg PO DAILY PRN metoprolol succinate ER 50 mg PO DAILY [id number] [id number] mcg (Centrum Silver Men) 1 tab PO DAILY rosuvastatin 20 mg PO DAILY warfarin 2.5 mg See Protocol PO DAILY Tobacco use date assessed: 12/09/24 Fall risk assessment: No Falls in past year Last assessed Fall Risk: 12/09/24 Dental Screening Dental Screen Date: 12/09/24 Did you have a dental visit in the last 12 months?: No Did you have a dental problem in the last 6 months where you did not have access to dental care?: No Was dental information given to patient?: No (Dentures) [facility] Medical History (Updated 12/09/24 @ 09:00 by Pia Philippe MD) Constipation Hyperpigmentation History of renal calculi Fatty liver GERD (gastroesophageal reflux disease) Osteoarthritis Hypercholesterolemia History of prostate cancer Atrial fibrillation Coronary artery disease Hypertension Surgical History History of cataract surgery History of prostatectomy History of cholecystectomy History of tonsillectomy Family History (Updated 12/09/24 @ 08:24 by RAJI Valles) Father Hypertension Mother Cancer Social History Housing: House Alcohol intake: current Alcohol intake frequency: a few times a month Comment: in [place] 2 a week Patient Tobacco Use Status: Never used Tobacco e-Cigarette/Vaping Use: Never Used Second Hand Smoke Exposure: No service: No Current occupational status: retired Cognitive needs: No Hearing needs: No Vision needs: Yes (Glasses) Questionnaire PHQ-9 Over the last 2 weeks, how often have you been bothered by any of the following problems? 1. Little interest or pleasure in doing things: not at all 2. Feeling down, depressed, or hopeless: not at all 3. Trouble falling or staying asleep, or sleeping too much: not at all 4. Feeling tired or having little energy: not at all 5. Poor appetite or overeating: not at all 6. Feeling bad about yourself - or that you are a failure or have let yourself or your family down: not at all 7. Trouble concentrating on things, such as reading the newspaper or watching television: not at all 8. Moving or speaking so slowly that other people could have noticed. Or the opposite - being so fidgety or restless that you have been moving around a lot more than usual: not at all 9. Thoughts that you would be better off or of hurting yourself in some way: not at all Total score: 0 Depression Screening Interpretation: Negative Depression Screening Done: Yes Source: Developed by Drs. Sedrick Escobar, Marge Weiner, Saleem Serrano and colleagues, with an educational reva from [employer] Thrive Questionnaire Date Thrive assessed: 12/02/24 I am a: Patient What is your living situation today?: I have a steady place to live Within the past 12 months, did the food you bought not last and you didn't have the money to get more?: Never true Within the past 12 months, did you worry whether your food would run out before you got money to buy more?: Never true Do you have trouble paying for medicines?: No Do you have trouble getting transportation to medical appointments?: No Do you have trouble paying your heating and electricity bill?: No Do you have trouble taking care of your child, family member or friend?: No Do you have trouble with day-to-day activities such as bathing, preparing meals, shopping, managing finances, etc.?: No Are you currently unemployed and looking for a job?: No Are you interested in more education?: No Please select the resources that you would like help with: None Currently or been in a relationship where the following occur: I choose not to answer THRIVE Score: 0 AUDIT C Alcohol Use Questionnaire (AUDIT-C) 1. How often do you have a drink containing alcohol?: 2-4 times a month 2. How many drinks containing alcohol do you have on a typical day when you are drinking?: 1 or 2 3. How often do you have six or more drinks on one occasion?: Never Total Score: 2 MOISES-7 AMB Questionnaire MOISES-7 Date MOISES - 7 assessed: 12/09/24 Feeling nervous, anxious, or on edge: 0 = Not at all Not being able to stop or control worryin = Not at all Worrying too much about different things: 0 = Not at all Trouble relaxin = Not at all Being so restless that it is hard to sit still: 0 = Not at all Becoming easily annoyed or irritable: 1 = Several days Feeling afraid as if something awful might happen: 0 = Not at all Total MOISES-7 score (0-4 normal; 5-9 mild; 10-14 moderate; 15-21 severe): 1 Source: Developed by Drs. Sedrick Escobar, Marge Weiner, Saleem Serrano and colleagues, with an educational reva from [employer] Physical exam (Primary Care) Vital Signs: Last Vital Signs Temp 97.1 F 12/09/24 08:26 Pulse 78 12/09/24 08:26 BP 112/76 12/09/24 08:26 Pulse Ox 96 12/09/24 08:26 Oxygen Delivery Method Room Air 12/09/24 08:26 BMI result Body Mass Index 28.4 Tobacco/Smoking Status: Tobacco use Status Tobacco use date assessed 12/09/24 12/09/24 08:31 Patient Tobacco Use Status Never used Tobacco 12/09/24 08:31 e-Cigarette/Vaping Use Never Used 12/09/24 08:31 PHQ-9: PHQ-9 Score PHQ-9: Total score 0 12/09/24 08:46 Depression Screening Interpretation: Negative Thrive Assessment: Date of Thrive Assessment Date Thrive assessed 12/02/24 12/09/24 08:31 Currently or been in a relationship where the following occur: I choose not to answer Const General: alert; No acute distress Eyes Conjunctivae: conjunctivae normal Resp Auscultation: clear to auscultation bilaterally Cardio Rate: regular rate Rhythm: regular rhythm GI Inspection: Yes normal to inspection Extrem General: Yes normal to inspection and No edema Coding Level of Care Code Est Pt Level 4 (97208) Complex EM visit Add On G2211 Diagnoses Paroxysmal atrial fibrillation I48.0 Atrial fibrillation type: paroxysmal History of prostate cancer Z85.46 Hypercholesterolemia E78.00 Coronary artery disease involving [place] coronary artery of [place] heart without angina pectoris I25.10 Associated angina: without angina Coronary Disease-Associated Artery/Lesion type: [place] artery Tribe vs. transplanted heart: [place] heart Essential hypertension I10 Hypertension type: essential hypertension Gastroesophageal reflux disease without esophagitis K21.9 Esophagitis presence: without esophagitis Anemia, unspecified type D64.9 Anemia type: unspecified type Pes anserinus bursitis of left knee M70.52 Assessment & Plan Assessment & Plan (1) Atrial fibrillation: Comment: Continue on anticoagulation. Code(s): I48.91 - Unspecified atrial fibrillation Category: Medical Qualifiers: Atrial fibrillation type: paroxysmal Qualified Code(s): I48.0 - Paroxysmal atrial fibrillation Plan: Continue with anticoagulation with Coumadin (2) History of prostate cancer: Comment: September 2015 dr. Garg, Dr. Paz Code(s): Z85.46 - Personal history of malignant neoplasm of prostate Category: Medical Plan: Patient follows up with urology and continuing to monitor PSA results are pending (3) Hypercholesterolemia: Code(s): E78.00 - Pure hypercholesterolemia, unspecified Category: Medical Plan: Avoid fried foods, chicken skin, eggs, butter margarine, pastries and meat. Be it pork or beef they have a lot of cholesterol LDL goal of less than 70 and triglyceride of less than 150 on rosuvastatin 20 mg once a day (4) Coronary artery disease: Comment: MRI November 2014 Dr. Donnie Melo [facility] Cloth Weigher stress test July 02 1018- Code(s): I25.10 - Atherosclerotic heart disease of [place] coronary artery without angina pectoris Category: Medical Qualifiers: Associated angina: without angina Coronary Disease-Associated Artery/Lesion type: [place] artery [place] vs. transplanted heart: [place] heart Qualified Code(s): I25.10 - Atherosclerotic heart disease of [place] coronary artery without angina pectoris Plan: Control the cholesterol, weight, blood pressure, continue with anticoagulation (5) Hypertension: Code(s): I10 - Essential (primary) hypertension Category: Medical Qualifiers: Hypertension type: essential hypertension Qualified Code(s): I10 - Essential (primary) hypertension Plan: Continue with blood pressure medication. Decrease salt intake and exercise patient takes metoprolol 50 mg once a day losartan 25 mg once a day (6) GERD (gastroesophageal reflux disease): Code(s): K21.9 - Gastro-esophageal reflux disease without esophagitis Category: Medical Qualifiers: Esophagitis presence: without esophagitis Qualified Code(s): K21.9 - Gastro-esophageal reflux disease without esophagitis Plan: Avoid the foods that causes that usually spicy foods, tomato products, juices, coffee, soda and foods that your sensitive to. After eating do not lie down, allow 3-4 hours before in lie down. And keep the head of bed above 30 degrees to avoid the acid from going up. (7) Anemia: Code(s): D64.9 - Anemia, unspecified Category: Medical Qualifiers: Anemia type: unspecified type Qualified Code(s): D64.9 - Anemia, unspecified Plan: Chronic and stable (8) Pes anserinus bursitis of left knee: Code(s): M70.52 - Other bursitis of knee, left knee Category: Medical Plan History of Present Illness The patient is a 79-year-old male presenting with a follow-up visit addressing chronic conditions including hypertension, coronary artery disease, atrial fibrillation, hyperlipidemia, GERD, and benign prostatic hyperplasia. The patient experienced dribbling but reported no current symptoms of dribbling. Cancer history includes successfully treated prostate cancer with a recent undetectable PSA. Comorbid conditions include a managed case of chronic anemia, and reports no major fluctuations in his status. The patient reports stability in managing his hypertension and cholesterol with metoprolol and rosuvastatin, respectively. A recent dermatology evaluation found benign lesions with pending surgical removal for one on the neck. The patient describes new mild pain in his left knee without swelling or history of trauma. He utilizes topical treatments and supplements for joint support, concerns over impaired mobility were discussed; the patient is instructed to use knee braces when possible. Laboratory screenings indicate controlled hypertension and hyperlipidemia, confirmed through satisfactorily low LDL levels, maintaining stability in cardiac function. The patient voiced concerns relating to periodic diarrhea following dietary changes. The management of atrial fibrillation continues with anticoagulation therapy. Health Maintenance - Received various vaccinations including tetanus, shingles, and RSV. - Discussed COVID-19 vaccine for fall season. - Continues managing LDL cholesterol goal of less than 70 with rosuvastatin. - Monitoring PSA levels regularly. - Encouraged maintaining active lifestyle. Social History - Exercise: Limited walking due to knee pain, uses stairs at home. - Functional Status: Independent, handles ADLs, reports difficulty. - Knee discomfort preventive measures: Uses topical and oral medications, wears knee braces when available. Review of Systems - Cardiovascular: Reports stable blood pressure management. - Musculoskeletal: Reports left knee pain, denies swelling. - Genitourinary: Denies current dribbling but acknowledged past occurrences. - Gastrointestinal: Reports diarrhea episodes, denies abdominal pain. - General: Denies unintentional weight loss or gain, reports maintained activity levels. Physical Exam Results - Labs: Mild chronic anemia, electrolytes normal, kidney and liver function stable. - Tests and Diagnostics: Stress test performed May 2024, pending cardiology records. Plan Continue with current medication regimen including metoprolol and losartan for hypertension, and rosuvastatin for hyperlipidemia, with regular monitoring of INR for warfarin. Address left knee pain conservatively, emphasizing activity continuation. Scheduled dermatology surgery and follow-up appointments to monitor PSA levels and comprehensive cardiac evaluations. Recommend COVID-19 vaccination uptake in the fall. Encourage adjustments in diet and hydration to address gastrointestinal symptoms and maintain an active lifestyle with appropriate joint support. Patient was informed and verbally consented to the use of an ambient scribe for clinic note documentation during this visit. Discussion Notes I discussed the ongoing management for the patient's conditions, emphasizing the ongoing control achieved in hypertension, atrial fibrillation, and hyperlipidemia. We touched on how current medications are beneficial, such as rosuvastatin achieving cholesterol targets and INR adjustments for warfarin. I reviewed medication adherence, emphasising the importance of maintaining physical activity to prevent joint stiffness. Surgical plans for dermatologic lesions were confirmed, with patient understanding risks and benefits. Fall booster vaccinations, particularly COVID, were emphasized to mitigate health risks. We planned for a follow-up covering all pertinent conditions with reminders for specialist appointments. Patient Instructions - Take prescribed medications as directed, particularly metoprolol and losartan. - Follow up with dermatology for lesion removal surgery. - Use Voltaren Gel and knee braces for left knee pain when needed. - Monitor INR levels as advised and report any bleeding issues. - Keep active without overexertion to maintain joint health. - Ensure vaccinations are kept up-to-date, plan to get a COVID-19 booster in the fall. - Be attentive to dietary intake, maintain hydration, and report persistent diarrhea if it occurs. - Make appointments with all specialists for ongoing management. Medications: Refilled rosuvastatin 20 mg PO DAILY 90 tabs 3RF E78.00 - Pure hypercholesterolemia, unspecified metoprolol succinate ER 50 mg PO DAILY 90 tabs 3RF I10 - Essential (primary) hypertension
[2024-12-09 08:26] VITALS: BP 112/76; PULSE 78; TEMP 36.2; O2SAT 96; BMI 28.4
--- OUTSIDE RECORDS SUMMARY | 2024-12-09 08:28 | XMS_ITS | Patient Health Record ---
Author Organization [facility] Address [address] [place] [place] [address] Care Team Providers Care Pattern Grader Supervisor Name Role Phone Michel BATISTA, [facility] Primary Care Provider Unavail able Vanessa Nelson Unavailable [phone] Reason For Referral No Information Medications Medication [...] W/U Status Risk Notes Problem Tibialis tendinitis (55252210) Posterior Tibial Tendonitis (726.72) Active confirmed Problem Edema (70978179) Edema (782.3) Active confirmed Problem Pain in limb (55939334) Pain in Limb (729.5) Active confirmed Plan Of Treatment Pending Test Test Name Order Date X ray : Foot, right 3V 02/25/2012 Insurance Providers Payer Name Payer Address Payer Phone Subscriber Number Group Number Insured Name Patient Relationship to Insured Coverage Start Date Coverage End Date Medicare [facility] [address] [place] [phone] [id number] Guero Real Self - patient is the insured [facility] [address] [place] [address] [id number] Guero Real Self - patient is the insured Medical (General) History Medical History History ICD Code Cholesterol
== END 2024-12-09 09:08 | disposition home or self-care (01) ==
LOC: HO.HMCH 08:20
PROVIDERS: PCP Internal Medicine; Visit Provider Internal Medicine
DX: I48.0 Paroxysmal atrial fibrillation (principal); Z85.46 Personal history of malignant neoplasm of prostate; E78.00 Pure hypercholesterolemia, unspecified; I25.10 Atherosclerotic heart disease of native coronary artery without angina pectoris; I10 Essential (primary) hypertension; K21.9 Gastro-esophageal reflux disease without esophagitis; D64.9 Anemia, unspecified; M70.52 Other bursitis of knee, left knee

== ENCOUNTER → 2024-12-09 08:19 | Outpatient (BNVA) | payer MEDICARE, OTHER, SELFPAY | PROVIDERS: PCP Internal Medicine; Visit Provider Internal Medicine | DX: I48.0 Paroxysmal atrial fibrillation (principal); E78.00 Pure hypercholesterolemia, unspecified; I25.10 Atherosclerotic heart disease of native coronary artery without angina pectoris; I10 Essential (primary) hypertension; K21.9 Gastro-esophageal reflux disease without esophagitis; D64.9 Anemia, unspecified; M70.52 Other bursitis of knee, left knee; Z85.46 Personal history of malignant neoplasm of prostate | CPT/HCPCS: 99212 ==

== ENCOUNTER 2025-01-18 07:54 | Outpatient (AMB) | payer MEDICARE, OTHER, SELFPAY ==
--- OUTSIDE RECORDS SUMMARY | 2025-01-18 07:58 | XMS_ITS | Patient Health Record ---
Author Organization [facility] Address [address] [place] [address] Care Team Providers Care Crystal Grower Name Role Phone Michel BATISTA, [facility] Primary Care Provider Unavail able Vanesas Nelson Unavailable [phone] Reason For Referral No Information Medications Medication SIG (Take, Route, Frequency, Duration) Notes Start Date End Date Status Digoxin Active Simvastatin 5 MG 1 tablet every eveni ng Orally Once a day; Duration: 30 day(s) Active Centrum Silver Activ e Olamide Aspirin EC Low Dose Active Aleve 220 MG 1 tablet as needed O rally every 12 hrs Active Fish Oil Active hydroCHLOROthiazide Active Problems Problem Type SNOMED Code ICD Code Onset Dates Problem Status W/U Status Risk Notes Problem Tibialis tendinitis (63739965) Posterior Tibial Tendonitis (726.72) Active confirmed Problem Edema (07664806) Edema (782.3) Active confirmed Problem Pain in limb (42722106) Pain in Limb (729.5) Active confirmed Plan Of Treatment Pending Test Test Name Order Date X ray : Foot, right 3V 02/25/2012 Insurance Providers Payer Name Payer Address Payer Phone Subscriber Number Group Number Insured Name Patient Relationship to Insured Coverage Start Date Coverage End Date Medicare [facility] [address] [place] [phone] [id number] Guero Real Self - patient is the insured [facility] [address] [place] [address] [id number] AddieGuero Self - patient is the insured Medical (General) History Medical History History ICD Code Cholesterol
[2025-01-18 08:04] LABS: Prothrombin Time Whole Bld POC 22.8 sec (11.1-13.5); ~PT, ~INR - Anti Coag Clinic 1.9 (0.9-1.1)
--- NOTE | 2025-01-18 08:14 | MHC.OFFVISCO ---
Intake Intake Visit Reasons: Anticoagulation Allergies prednisone Allergy (Unknown, Verified 01/18/25 07:55) ? joint pain lisinopril Adverse Reaction (Intermediate, Verified 01/18/25 07:55) Dry throat Medication List - Last Reconciled 01/18/25 by Lubna Menard RN doxycycline hyclate mg PO [hyaluronic acid PO] losartan 25 mg PO DAILY meclizine 12.5 mg PO DAILY PRN metoprolol succinate ER 50 mg PO DAILY [id number]-dydlmp 565-86-382-300 mcg (Centrum Silver Men) 1 tab PO DAILY rosuvastatin 20 mg PO DAILY tadalafil 5 mg PO DAILY warfarin 2.5 mg See Protocol PO DAILY Nursing Note INR 1.9 out of therapeutic range Medications and supplements reviewed *Patient status: S/P mohs procedure and doxycycline x 5 days . left neck dressing clean dry and intact INR values have been trending low prior procedure Medications or supplements: started antbx saturday and elaine end this Sat am *has not been taking usual probitic, vitamin, and hyaluronic acid was held for several days for procedure Diet: good - not a big green eater Denies any signs and symptoms of bleeding or clotting or unusual bruising Bleeding, bruising, clotting discussed Nutritional guidance given: pt enc to eat a vit k food at end of the week to offset antbx - not a lot just an extra serving- likes lettuce and blueberries, milk chocolate Dose: keep same for now 1.25mg x 1 day/ 2.5mg x6 days - let antbx raise INR F/U INR Date: 1 week Patient verbalizing understanding of instructions given. Anti-Coag Initial Assessment Social Hx Patient Tobacco Use Status: Never used Tobacco alcohol intake: current Alcohol intake frequency: a few times a month Questionnaires HAS-BLED Does the patient had uncontrolled Hypertension?: No Does the patient have renal disease?: No Does the patient have liver disease?: No Does the patient have a history of stroke?: No Has the patient had major bleeding or predisposition to bleeding?: No Does the patient have labile INRs?: No Is the patient over 65 years of age?: Yes Is the patient on medications that gives them a predisposition to bleeding?: Yes Does the patient use alcohol?: No HAS-BLED Score: 2 CHADSVASC Age: 75 or over Gender: Male Does the patient have a history of CHF?: No Does the patient have a history of Hypertension?: Yes Does the patient have a history of Stroke/TIA/Thromboembolism?: No Does the patient have a history of Vascular Disease (prior NC, PAD or aortic plaque)?: Yes Does the patient have a history of Diabetes?: No CHADS VACS Score: 4 Josue Prediction Score Rsk VTE Active Cancer: No Previous VTE, excluding superficial vein thrombosis: No Reduced mobility: No Already known Thrombophilic Condition: No With-in last month Trauma and/or Surgery: Yes (mohs procedure for cancer removal 4 days ago ) Elderly 70 year or older: Yes Heart and/or Respiratory Failure: No Acute Myocardial infarction and/or Ischemic Stroke: Yes Acute Infection and/or Rheumatologic Disorder: No Obesity (BMI 30 or greater): No Ongoing Hormonal Treatment: No Score: 4 Josue Score less than 4; Low Risk of VTE Josue Score 4 or greater; High Risk of VTE Coding Level of Care Code Est Patient Level 1 Diagnoses Current use of anticoagulant therapy Z79.01 Results AMB INR Fingerstick AMB INR Fingerstick 1.9 Last Edit by Lubna Menard RN on 01/18/25 08:04 MANUAL ENTRY Assessment & Plan Assessment & Plan (1) Current use of anticoagulant therapy: Code(s): Z79.01 - technical planner (current) use of anticoagulants Category: Medical Medications: New Bifidobacterium longum (Align (B.longum)) PO
== END 2025-01-18 08:20 | disposition home or self-care (01) ==
LOC: HO.ACS 07:54
PROVIDERS: PCP Internal Medicine; Visit Provider Internal Medicine Medical Oncology
DX: Z79.01 Long term (current) use of anticoagulants (principal)

== ENCOUNTER → 2025-01-18 07:54 | Outpatient (BNVA) | payer MEDICARE, OTHER, SELFPAY | PROVIDERS: PCP Internal Medicine; Visit Provider Internal Medicine Medical Oncology | DX: I48.0 Paroxysmal atrial fibrillation (principal); Z79.01 Long term (current) use of anticoagulants; Z51.81 Encounter for therapeutic drug level monitoring | CPT/HCPCS: 85610; 99211 ==

== ENCOUNTER 2025-01-26 08:03 | Outpatient (AMB) | payer MEDICARE, OTHER, SELFPAY ==
--- OUTSIDE RECORDS SUMMARY | 2025-01-26 08:05 | XMS_ITS | Patient Health Record ---
Author Organization [facility] Address [address] [place] [address] Care Team Providers Care Cloth Shrinking Tester Name Role Phone Michel BATISTA, [facility] Primary Care Provider Unavail able Vanessa Nelson Unavailable [phone] Reason For Referral No Information Medications Medication [...] W/U Status Risk Notes Problem Tibialis tendinitis (41291208) Posterior Tibial Tendonitis (726.72) Active confirmed Problem Edema (28246769) Edema (782.3) Active confirmed Problem Pain in Limb (729.5) Active confirmed Plan Of Treatment Pending Test Test Name Order Date X ray : Foot, right 3V 02/25/2012 Insurance Providers Payer Name Payer Address Payer Phone Subscriber Number Group Number Insured Name Patient Relationship to Insured Coverage Start Date Coverage End Date Medicare National [facility] [address] [place] [phone] [id number] Guero Real Self - patient is the insured [facility] [address] [facility] [id number] Guero Real Self - patient is the insured Medical (General) History Medical History History ICD Code Cholesterol
[2025-01-26 08:12] LABS: Prothrombin Time Whole Bld POC 26.5 sec (11.1-13.5); ~PT, ~INR - Anti Coag Clinic 2.2 (0.9-1.1)
--- NOTE | 2025-01-26 08:17 | MHC.OFFVISCO ---
Intake Intake Visit Reasons: Anticoagulation Allergies prednisone Allergy (Unknown, Verified 01/26/25 08:06) ? joint pain lisinopril Adverse Reaction (Intermediate, Verified 01/26/25 08:06) Dry throat Medication List - Last Reconciled 01/26/25 by Violeta De Anda RN Bifidobacterium longum (Align (B.longum)) PO [hyaluronic acid PO] losartan 25 mg PO DAILY meclizine 12.5 mg PO DAILY PRN metoprolol succinate ER 50 mg PO DAILY co-oxd-fbpms-R2-jncwrnb-hiabhz [id number] mcg (Centrum Silver Men) 1 tab PO DAILY rosuvastatin 20 mg PO DAILY tadalafil 5 mg PO DAILY warfarin 2.5 mg See Protocol PO DAILY Nursing Note INR: 2.2 in therapeutic rangeof 2-3 S/p MOHS procedure last week, no hold of warfarin. Healing well. INR's have been trendin low. Medications and supplements reviewed No changes in health, diet, medications, or supplements, Denies any signs and symptoms of bleeding or bruising or clotting. Bleeding, bruising, clotting discussed Nutritional guidance given to balance reds and greens Dose: 2.5mg today (usual 1.25mg) then resume 2.5mg X 6 days and 1.25mg X 1 day (Tu) F/U INR: 4 weeks at pt's request Patient verbalizes understanding of instructions given Anti-Coag Initial Assessment Social Hx Patient Tobacco Use Status: Never used Tobacco alcohol intake: current Alcohol intake frequency: a few times a month Coding Level of Care Code Est Patient Level 1 Diagnoses Current use of anticoagulant therapy Z79.01 Results AMB INR Fingerstick AMB INR Fingerstick 2.2 Last Edit by Violeta De Anda RN on 01/26/25 08:11 interface delay Assessment & Plan Assessment & Plan (1) Current use of anticoagulant therapy: Code(s): Z79.01 - detention (current) use of anticoagulants Category: Medical
== END 2025-01-26 08:26 | disposition home or self-care (01) ==
LOC: HO.ACS 08:03
PROVIDERS: PCP Internal Medicine; Visit Provider Internal Medicine Medical Oncology
DX: Z79.01 Long term (current) use of anticoagulants (principal)

== ENCOUNTER → 2025-01-26 08:03 | Outpatient (BNVA) | payer MEDICARE, OTHER, SELFPAY | PROVIDERS: PCP Internal Medicine; Visit Provider Internal Medicine Medical Oncology | DX: I48.0 Paroxysmal atrial fibrillation (principal); Z79.01 Long term (current) use of anticoagulants; Z51.81 Encounter for therapeutic drug level monitoring | CPT/HCPCS: 85610; 99211 ==

== ENCOUNTER 2025-02-23 07:51 | Outpatient (AMB) | payer MEDICARE, OTHER, SELFPAY ==
--- OUTSIDE RECORDS SUMMARY | 2025-02-23 07:56 | XMS_ITS | Patient Health Record ---
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 Problem Edema (45646801) Edema (782.3) Active confirmed Problem Pain in limb (96361119) Pain in Limb (729.5) Active confirmed Plan Of Treatment Pending Test Test Name Order Date X ray : Foot, right 3V 02/25/2012 Insurance Providers Payer Name Payer Address Payer Phone Subscriber Number Group Number Insured Name Patient Relationship to Insured Coverage Start Date Coverage End Date Medicare National [facility] [employer] [address] [place] [phone] [id number] Guero Real Self - patient is the insured Health [facility] [address] [place] [address] [id number] AntoniettafridaGuero Self - patient is the insured Medical (General) History Medical History History ICD Code Cholesterol
[2025-02-23 08:04] LABS: Prothrombin Time Whole Bld POC 24.0 sec (11.1-13.5); ~PT, ~INR - Anti Coag Clinic 2.0 (0.9-1.1)
--- NOTE | 2025-02-23 08:10 | MHC.OFFVISCO ---
Intake Intake Visit Reasons: Anticoagulation Allergies prednisone Allergy (Unknown, Verified 02/23/25 07:59) ? joint pain lisinopril Adverse Reaction (Intermediate, Verified 02/23/25 07:59) Dry throat Medication List - Last Reconciled 02/23/25 by Lubna Menard, RN Bifidobacterium longum (Align (B.longum)) PO [hyaluronic acid PO] losartan 25 mg PO DAILY meclizine 12.5 mg PO DAILY PRN metoprolol succinate ER 50 mg PO DAILY yv-lie-dqqbi-R2-otbxiby-odvogt 492-27-849-300 mcg (Centrum Silver Men) 1 tab PO DAILY rosuvastatin 20 mg PO DAILY tadalafil 5 mg PO DAILY warfarin 2.5 mg See Protocol PO DAILY Nursing Note INR: 2.0 in therapeutic range Medications and supplements reviewed No changes in health, diet, medications, or supplements, Denies any signs and symptoms of bleeding or bruising or clotting. 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
== END 2025-02-23 08:13 | disposition home or self-care (01) ==
LOC: HO.ACS 07:51
PROVIDERS: PCP Internal Medicine; Visit Provider Internal Medicine Medical Oncology
DX: Z79.01 Long term (current) use of anticoagulants (principal)

== ENCOUNTER → 2025-02-23 07:51 | Outpatient (BNVA) | payer MEDICARE, OTHER, SELFPAY | PROVIDERS: PCP Internal Medicine; Visit Provider Internal Medicine Medical Oncology | DX: Z51.81 Encounter for therapeutic drug level monitoring (principal); Z79.01 Long term (current) use of anticoagulants | CPT/HCPCS: 85610; 99211 ==

== ENCOUNTER 2025-03-23 08:00 | Outpatient (AMB) | payer MEDICARE, OTHER, SELFPAY ==
--- NOTE | 2025-03-23 08:13 | MHC.OFFVISCO ---
Intake Intake Visit Reasons: Anticoagulation Allergies prednisone Allergy (Unknown, Verified 03/23/25 08:00) ? joint pain lisinopril Adverse Reaction (Intermediate, Verified 03/23/25 08:00) Dry throat Nursing Note INR 1.7 out of therapeutic range of 2-3 Pt states he had a MOHS procedure to left ear approx 1 week ago. Left ear is swollen and redenned with sutures intact. Pt has been putting vaseline on site 2-3X/day as directed. States he is on an antibiotic but can't remember the name and has one more day to complete course. Medications and supplements reviewed Patient status: feels well Medications or supplements: no changes Diet: usual diet for pt Denies any signs and symptoms of bleeding or clotting or unusual bruising Bleeding, bruising, clotting discussed Nutritional guidance given: to avoid greens X 2 days Dose: increase today's dose to 3.75mg and then increase weekly dose to 2.5mg daily instead of 2.5mg X 6 days and 1.25mg X 1 day F/U INR Date: 2 weeks?? Patient verbalizing understanding of instructions given. 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
== END 2025-03-23 08:24 | disposition home or self-care (01) ==
LOC: HO.ACS 08:00
PROVIDERS: PCP Internal Medicine; Visit Provider Internal Medicine Medical Oncology
DX: Z79.01 Long term (current) use of anticoagulants (principal)

== ENCOUNTER → 2025-03-23 08:00 | Outpatient (BNVA) | payer MEDICARE, OTHER, SELFPAY | PROVIDERS: PCP Internal Medicine; Visit Provider Internal Medicine Medical Oncology | DX: Z51.81 Encounter for therapeutic drug level monitoring (principal); Z79.01 Long term (current) use of anticoagulants | CPT/HCPCS: 85610; 99211 ==

== ENCOUNTER 2025-04-07 08:04 | Outpatient (AMB) | payer MEDICARE, OTHER, SELFPAY ==
--- NOTE | 2025-04-07 08:10 | MHC.OFFVISCO ---
Intake Intake Visit Reasons: Anticoagulation Allergies prednisone Allergy (Unknown, Verified 04/07/25 08:04) ? joint pain lisinopril Adverse Reaction (Intermediate, Verified 04/07/25 08:04) Dry throat Medication List - Last Reconciled 04/07/25 by Karime Ibarra RN Bifidobacterium longum (Align (B.longum)) PO [hyaluronic acid PO] losartan 25 mg PO DAILY meclizine 12.5 mg PO DAILY PRN metoprolol succinate ER 50 mg PO DAILY vl-rcf-eixhg-U8-uwrcihx-mbglse 399-93-106-300 mcg (Centrum Silver Men) 1 tab PO DAILY rosuvastatin 20 mg PO DAILY tadalafil 5 mg PO DAILY warfarin 2.5 mg See Protocol PO DAILY Nursing Note INR: 2.0- in therapeutic range 2-3 Medications and supplements reviewed- no changes No changes in health, diet, medications, or supplements, Denies any signs and symptoms of bleeding or bruising or clotting. Bleeding, bruising, clotting discussed Nutritional guidance given Dose: pt states took 1.25mg yesterday instead of 2.5mg. take 3.75mg today then 2.5mg x 7 F/U INR: pt to [facility] 04/13/25-06/11/25 has appt for inr check 04/27/25 in [facility], appt made at [facility] for 06/14/25 Patient verbalizes understanding of instructions given Anti-Coag Initial Assessment Social Hx Patient Tobacco Use Status: Never used Tobacco alcohol intake: current Alcohol intake frequency: a few times a month Coding Level of Care Code Est Patient Level 1 Diagnoses Current use of anticoagulant therapy Z79.01 Results AMB INR Fingerstick AMB INR Fingerstick 2.0 Last Edit by Karime Ibarra RN on 04/07/25 08:12 Assessment & Plan Assessment & Plan (1) Current use of anticoagulant therapy: Code(s): Z79.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
[2025-04-07 08:20] LABS: Prothrombin Time Whole Bld POC 23.9 sec (11.1-13.5); ~PT, ~INR - Anti Coag Clinic 2.0 (0.9-1.1)
== END 2025-04-07 08:40 | disposition home or self-care (01) ==
LOC: HO.ACS 08:04
PROVIDERS: PCP Internal Medicine; Visit Provider Internal Medicine Medical Oncology
DX: Z79.01 Long term (current) use of anticoagulants (principal)

== ENCOUNTER → 2025-04-07 08:04 | Outpatient (BNVA) | payer MEDICARE, OTHER, SELFPAY | PROVIDERS: PCP Internal Medicine; Visit Provider Internal Medicine Medical Oncology | DX: Z51.81 Encounter for therapeutic drug level monitoring (principal); Z79.01 Long term (current) use of anticoagulants | CPT/HCPCS: 85610; 99211 ==

== ENCOUNTER 2025-06-14 08:05 | Outpatient (AMB) | payer MEDICARE, OTHER, SELFPAY ==
[2025-06-14 08:12] LABS: Prothrombin Time Whole Bld POC 24.4 sec (11.1-13.5); ~PT, ~INR - Anti Coag Clinic 2.0 (0.9-1.1)
--- NOTE | 2025-06-14 08:19 | MHC.OFFVISCO ---
Intake Intake Visit Reasons: Anticoagulation Allergies prednisone Allergy (Unknown, Verified 06/14/25 08:06) ? joint pain lisinopril Adverse Reaction (Intermediate, Verified 06/14/25 08:06) Dry throat Medication List - Last Reconciled 06/14/25 by Lubna Menard RN [hyaluronic acid PO] losartan 25 mg PO DAILY meclizine 12.5 mg PO DAILY PRN metoprolol succinate ER 50 mg PO DAILY ri-akp-jlckr-F0-kaphhxn-htnstw 636-18-956-300 mcg (Centrum Silver Men) 1 tab PO DAILY rosuvastatin 20 mg PO DAILY warfarin 2.5 mg See Protocol PO DAILY Nursing Note INR: 2.0 in therapeutic range- DOSE INCREASED 1 MONTH AGO - RUNNING ON LOWER SIDE OF RANGE Medications and supplements reviewed- taking valteren for foot pain to see PCP- can raise the INR To see PCP tomorrow No changes in health, diet, or supplements, Denies any signs and symptoms of bleeding or bruising or clotting. Bleeding, bruising, clotting discussed Nutritional guidance given - KEEP SAME Dose: 3.75MG TODAY THEN RESUME 2.5MG DAILY F/U INR: 06/29/25 prior leaving for [place] Will call [facility] with any med changes Patient verbalizes understanding of instructions given Anti-Coag Initial Assessment Social Hx Patient Tobacco Use Status: Never used Tobacco alcohol intake: current Alcohol intake frequency: a few times a month Coding Level of Care Code Est Patient Level 1 Diagnoses Current use of anticoagulant therapy Z79.01 Assessment & Plan Assessment & Plan (1) Current use of anticoagulant therapy: Code(s): Z79.01 - [facility] (current) use of anticoagulants Category: Medical
--- OUTSIDE RECORDS SUMMARY | 2025-06-14 08:39 | XMS_ITS | Patient Health Record ---
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 Problem Edema (96782184) Edema (782.3) Active confirmed Problem Pain in limb (56258160) Pain in Limb (729.5) Active confirmed Plan Of Treatment Pending Test Test Name Order Date X ray : Foot, right 3V 02/25/2012 Insurance Providers Payer Name Payer Address Payer Phone Subscriber Number Group Number Insured Name Patient Relationship to Insured Coverage Start Date Coverage End Date Medicare National [facility] [address] [place] [phone] [id number] Guero Real Self - patient is the insured Health [facility] [address] [place] [address] [id number] AntoniettafridaGuero Self - patient is the insured Medical (General) History Medical History History ICD Code Cholesterol
== END 2025-06-14 08:23 | disposition home or self-care (01) ==
LOC: HO.ACS 08:05
PROVIDERS: PCP Internal Medicine; Visit Provider Internal Medicine Medical Oncology
DX: Z79.01 Long term (current) use of anticoagulants (principal)

== ENCOUNTER → 2025-06-14 08:05 | Outpatient (BNVA) | payer MEDICARE, OTHER, SELFPAY | PROVIDERS: PCP Internal Medicine; Visit Provider Internal Medicine Medical Oncology | DX: I48.20 Chronic atrial fibrillation, unspecified (principal); Z51.81 Encounter for therapeutic drug level monitoring; Z79.01 Long term (current) use of anticoagulants | CPT/HCPCS: 85610; 99211 ==

== ENCOUNTER 2025-06-15 09:26 | Outpatient (AMB) | payer MEDICARE, OTHER, SELFPAY ==
--- NOTE | 2025-06-15 09:39 | A.OFFVIS_ITS ---
Intake Vital Signs 3 06/15/25 09:40 Height 5 ft 10 in Weight 202 lb BMI 29.0 BP 112/70 Blood Pressure Location Lt brachial Position Sitting Pulse 75 Pulse Source Pulse Oximeter Temp 96.9 F Temp Source Temporal Artery Scan Pulse Oximetry (%) 99 Oxygen Delivery Method Room Air Intake Visit Reasons: wellness check Intake Note: Patient is here for an Annual Wellness Visit. Hand Spray Operator Required: No Windows Deployment Technician: Windows Deployment Technician offered & declined Accompanied by: Self / Same As Patient Allergies prednisone Allergy (Unknown, Verified 06/15/25 09:40) ? joint pain lisinopril Adverse Reaction (Intermediate, Verified 06/15/25 09:40) Dry throat Medication List - Last Reconciled 06/15/25 by Pia Philippe MD [hyaluronic acid PO] losartan 25 mg PO DAILY meclizine 12.5 mg PO DAILY PRN metoprolol succinate ER 50 mg PO DAILY [id number] [phone] mcg (Centrum Silver Men) 1 tab PO DAILY rosuvastatin 20 mg PO DAILY warfarin 2.5 mg See Protocol PO DAILY HPI wellness check 2 HPI0 Details [place] [facility] [place] [facility], [facility], [facility] HPI Comments 2 History of Present Illness0 Details History of Present Illness The patient is a 80 year old male presenting for an annual wellness visit and evaluation of right foot pain. His past medical history is significant for being overweight, hypertension, paroxysmal atrial fibrillation, coronary artery disease with a history of ST-elevation myocardial infarction (STEMI) in October 2015, hypercholesterolemia, gastroesophageal reflux disease (GERD), and a history of prostate cancer in 2016. The patient reports new onset of pain in the instep of his right foot that started sometime during the summer. He denies any fall or injury and is unsure of the cause, speculating it could be a fallen arch. He has not had it evaluated previously. Regarding his cardiac history, he follows with [facility]. He has a [id number] score of 3 and is on medical management, including anticoagulation with Coumadin and a beta-maggie. He is no longer on aspirin. His INR target is 2.0-3.0. A stress test performed a year ago was passed, and he denies recent chest pain, though he had an episode a couple of years ago after fast walking. For his prostate cancer history, he follows with [facility] and saw a urologist in January. His PSA was 0.08 in November, but he notes it has gone up slightly on two occasions. His history includes Mohs surgery on his neck for a precancerous lesion in January and a procedure on the top of his ear in late March, both performed by [facility]. Lab work from December 08 revealed mild anemia with a hemoglobin of 13.5 and hematocrit of 41.3, which has been stable for the last 2 years. His electrolytes were good, creatinine was 1.28, blood sugar was 96 with a normal A1c, liver function was fine, and LDL was 56. For health maintenance, his last Cologuard test was in 2020. He received a flu shot the week of and a COVID shot at the end of March. Allergies include lisinopril and possibly prednisone, both from years ago, with no new allergies. His current medications include losartan 25 mg, metoprolol 50 mg, rosuvastatin 20 mg, Coumadin, Centrum Silver, and hyaluronic acid for his knees. He has meclizine as needed but has not used it in years. He occasionally uses Voltaren on his ankles. Health Maintenance - Colon cancer screening: Last Cologuard test was in 2020 and is now due. - Immunizations: Patient is up to date o n tetanus, shingles, and RSV vaccines. - He received his flu shot the week of and a COVID shot at the end of March. - Eye exam: Last eye exam was in November Dr. Murray in [place]. - Routine labs: Last bloodwork was in [facility] 2024. - Prostate Cancer Surveillance: PSA leve l was 0.08 in November and is monitored by urology. - Cardiovascular risk reduction: Goal LD L cholesterol is less than 70 mg/dL, and triglycerides less than 150 mg/dL. - Healthy lifestyle: Advised to hydrate well, eat healthy, and stay active. Social History - Alcohol use: Reports having one beer o ccasionally with dinner or while grilling when he is in [place], but never drinks while in [place]. - Tobacco use: Denies ever being a regul ar smoker, having tried it once when young. - Recreational drug use: Denies. - Residence: Spends time in both [facility] and [place], and will be returning to [place] for the winter. - Functional Status: Becomes winded with fast walking through an airport with luggage but reports no issues with a single flight of stairs. Results - Labs from December 08, 2024: - CBC: Hemoglobin 13.5 g/dL, Hematocrit 41.3%. Mild anemia is stable over the last 2 years. - CMP: Electrolytes are good. Creatinine 1.28 mg/dL. Glucose 96 mg/dL. Normal liver function. - Hemoglobin A1c: Normal. - Lipid Panel: LDL 56 mg/dL. - PSA: 0.08 ng/mL. - Tests and Diagnostics: - Cologuard: Last performed in 2020. - Stress test: Performed one year ago an d was passed. - Echocardiogram: Performed one year ago . - INR: Was 2.0 yesterday. - Digital Rectal Exam: Guaiac test negat yifan today. [facility] Medical History Constipation Hyperpigmentation History of renal calculi Fatty liver GERD (gastroesophageal reflux disease) Osteoarthritis Hypercholesterolemia History of prostate cancer Atrial fibrillation Coronary artery disease Hypertension Surgical History (Updated 06/15/25 @ 09:46 by RAJI Valles) History of removal of skin mole History of cataract surgery History of prostatectomy History of cholecystectomy History of tonsillectomy Family History Father Hypertension Mother Cancer Social History Housing: House Alcohol intake: current Alcohol intake frequency: a few times a month Comment: in [place] 2 a week Patient Tobacco Use Status: Never used Tobacco e-Cigarette/Vaping Use: Never Used Second Hand Smoke Exposure: No service: No Current occupational status: retired Cognitive needs: No Hearing needs: No Vision needs: Yes (Glasses) Questionnaire Medicare Wellness Checkup What [age] What gender do you identify with?: male During the past 4 weeks, how much have you been bothered by emotional problems such as feeling anxious, depressed, irritable, sad or downhearted, and blue?: n ot at all During the past 4 weeks, has your physical & emotional health limited your social activities with family, friends, neighbors, or groups?: not at all During the past 4 weeks, how much bodily pain have you generally had?: mild pain During the past 4 weeks, was someone available to help you if you needed & wanted help?: yes, as much as I wanted During the past 4 weeks, what was the hardest physical activity you could do for at least 2 minutes?: moderate Can you get to places out of walking distance without help? (For eg., can you travel alone on buses, taxis or drive your car?): Yes Can you go shopping for groceries or clothes without someone's help?: Yes Can you prepare your own meals?: Yes Can you do your housework without help?: Yes Because of any health problems, do you need the help of another person with your personal care needs such as eating, bathing, dressing or getting around the house?: No Can you handle your own money without help?: Yes During the past 4 weeks, how would you rate your health in general?: very good During the past 4 weeks how have things been going for you?: very well; could hardly better Are you having difficulties driving your car?: no Do you always fasten your seat belt when you are in a car?: yes, usually During past 4 weeks, have you been bothered by the following: never: Falling or dizzy when standing up, Trouble eating well?, Teeth or denture problems? and Problems using the telephone?, seldom: Tiredness or fatigue? and always: Sexual problems? Have you fallen 2 or more times in the past year?: No Are you afraid of falling?: No Are you a smoker?: no During the past 4 weeks, how many drinks of wine, beer, or other alcoholic beverages did you have?: 10 or more per week Do you exercise for about 20 minutes 3 or more times a week?: no, I usually do not exercise this much Have you been given information to help with the following?: no: Hazards in your house that might hurt you? and no: Keeping track of your medications? How often do you have trouble taking medicines the way you have been told to take them?: I always take medicine as prescribed How confident are you that you can control & manage most of your health problems?: very confident What is your race?: White PHQ-9 Over the last 2 weeks, how often have you been bothered by any of the following problems? 1. Little interest or pleasure in doing things: not at all 2. Feeling down, depressed, or hopeless: not at all 3. Trouble falling or staying asleep, or sleeping too much: not at all 4. Feeling tired or having little energy: not at all 5. Poor appetite or overeating: not at all 6. Feeling bad about yourself - or that you are a failure or have let yourself or your family down: not at all 7. Trouble concentrating on things, such as reading the newspaper or watching television: not at all 8. Moving or speaking so slowly that other people could have noticed. Or the opposite - being so fidgety or restless that you have been moving around a lot more than usual: not at all 9. Thoughts that you would be better off or of hurting yourself in some way: not at all Total score: 0 Depression Screening Interpretation: Negative Depression Screening Done: Yes Source: Developed by Drs. Sedrick Escobar, Marge Weiner, Saleem Serrano and colleagues, with an educational reva from [employer]. Thrive Questionnaire Date Thrive assessed: 12/02/24 I am a: Patient What is your living situation today?: I have a steady place to live Within the past 12 months, did the food you bought not last and you didn't have the money to get more?: Never true Within the past 12 months, did you worry whether your food would run out before you got money to buy more?: Never true Do you have trouble paying for medicines?: No Do you have trouble getting transportation to medical appointments?: No Do you have trouble paying your heating and electricity bill?: No Do you have trouble taking care of your child, family member or friend?: No Do you have trouble with day-to-day activities such as bathing, preparing meals, shopping, managing finances, etc.?: No Are you currently unemployed and looking for a job?: No Are you interested in more education?: No Please select the resources that you would like help with: None Currently or been in a relationship where the following occur: I choose not to answer THRIVE Score: 0 MOISES-7 AMB Questionnaire MOISES-7 Date MOISES - 7 assessed: 12/09/24 Source: Developed by Drs. Sedrick Escobar, Marge Weiner, Saleem Serrano and colleagues, with an educational reva from [employer]. Review of Systems Narrative Review of Systems - General: Denies fever. - Constitutional: Reports feeling cold in the exam room. - HEENT: Reports hearing loss but does not use hearing aids. Denies vision problems, having had cataract surgery. Denies problems with swallowing. - Cardiovascular: Denies chest pain or heaviness. Denies syncope. Denies waking up with shortness of breath. - Respiratory: Reports getting winded with fast walking (e.g., through an airport), but denies dyspnea with climbing a flight of stairs. - Gastrointestinal: Reports occasional heartburn or regurgitation of bile at night, occurring less than once a month, which is relieved with Tums. Denies heartburn during the day. Reports regular, light brown bowel movements. Denies noticing blood in the stool or black stools. Denies nausea or vomiting. - Genitourinary: Post-prostatectomy, he reports occasional urinary leakage and a weak stream. He wakes once or twice at night to urinate. The leakage is not bothersome enough to warrant treatment. - Musculoskeletal: Reports pain in the instep of the right foot since the summer. Reports his knees are pretty good and uses hyaluronic acid. He occasionally applies leftover Voltaren to his knee. - Neurological: Denies dizziness. Const Denies poor appetite and Denies weakness Eyes Denies no additional complaints ENT Reports Normal hearing present, Denies dizziness, Denies nasal congestion, Denies tinnitus and Denies sore throat Card Denies chest pain, Denies syncope, Denies rapid heart rate and Denies dyspnea Resp Denies cough and Denies dyspnea GI Denies change in stool character, Reports constipation, Denies diarrhea, Denies nausea and Denies vomiting Denies dysuria and Denies urinary frequency Neuro Reports Normal hearing present, Denies confusion, Denies dizziness, Denies syncope and Denies weakness Psych Denies confusion Physical Exam Exam Exam: Physical Exam General: Cooperative, healthy appearing, comfortable, no acute distress and well developed Orientation: Patient oriented x3 Limitations: No limitations Head: Normal to inspection Ears: Hearing grossly normal bilaterally, though patient reports using hearing aids occasionally Nose: Normal external nose present Face and sinus: Normal facial exam Eyes: Appearance normal, both eyes and all related structures Neck: Normal visual inspection and Yes full ROM Respiratory: Normal respiratory effort and able to speak in complete sentences. Clear to auscultation bilaterally Cardiovascular: Regular rate and rhythm. Normal S1 and S2. Patient has a history of atrial fibrillation, currently managed with medication GI: Normal to inspection. Soft to palpation and nontender Skin: No rashes or lesions noted. Recent Mohs surgery on neck and ear for precancerous lesions Neuro: Patient oriented x3 Extremities: Normal to inspection. Reports pain in the right foot, particularly in the instep area, with no redness or swelling. X-ray requested for further evaluation. Vital Signs: Last Vital Signs Temp 96.9 F 06/15/25 09:40 Pulse 75 06/15/25 09:40 BP 112/70 06/15/25 09:40 Pulse Ox 99 06/15/25 09:40 Oxygen Delivery Method Room Air 06/15/25 09:40 BMI result Body Mass Index 29.0 Const General: No confusion Orientation/consciousness: No confusion HEENT Head: Yes normocephalic Ears: external ears normal and TM's normal bilaterally Face and sinus: Yes normal facial exam Mouth: moist mucous membranes Throat: Yes tonsils normal Eyes Conjunctivae: conjunctivae normal Pupils: Equal, round and reactive pupils present and Pupil accommodation reflex normal Direct Ophthalmoscopy: normal light reflex Neck Neck: No lymphadenopathy Thyroid: Thyroid normal Chest Chest palpation & inspection: normal inspection of the chest Resp Effort & Inspection: normal respiratory effort and no audible wheezes Auscultation: clear to auscultation bilaterally, no crackles, no wheezes and lung sounds not diminished Cardio Rate: regular rate Rhythm: regular rhythm Peripheral pulses: radial pulses present and dorsalis pedis present GI Other: guaiac negative , absent prostate Palpation (GI): no masses Auscultation: normal bowel sounds and normoactive bowel sounds Male General Exam: Yes normal external exam Skin General skin exam: no rashes or lesions noted Rashes: no rashes Neuro General: No confusion Cranial nerves: Yes Equal, round and reactive pupils present and Yes Normal hearing present Cognition (Neuro): normal cognition Gait exam (Neuro): Normal gait present Motor exam (neuro): 5/5 motor strength present throughout Deep tendon reflexes (DTR's): Right brachioradialis reflex intensity grade: 2+, Left brachioradialis reflex intensity grade: 2+, Right patellar reflex intensity grade: 2+ and Left patellar reflex intensity grade: 2+ Extrem General: No edema Ankle/foot/toe images: 2 1. R tender area but no redness, no swelling Assessment & Plan Assessment & Plan (1) Medicare annual wellness visit, subsequent: Code(s): Z00.00 - Encounter for general adult medical examination without abnormal findings Plan: Patient is advised to eat healthy, keep well hydrated, keep active and have adequate sleep. (2) Hypertension: Code(s): I10 - Essential (primary) hypertension Qualifiers: Hypertension type: essential hypertension Qualified Code(s): I10 - Essential (primary) hypertension Plan: Continue with blood pressure medication. Decrease salt intake and exercise on losartan 25 mg once a day metoprolol 50 mg once a day (3) Atrial fibrillation: Comment: Continue on anticoagulation. Code(s): I48.91 - Unspecified atrial fibrillation Qualifiers: Atrial fibrillation type: paroxysmal Qualified Code(s): I48.0 - Paroxysmal atrial fibrillation Plan: Continuing anticoagulation Coumadin, on metoprolol 50 mg once a day (4) Hypercholesterolemia: Code(s): E78.00 - Pure hypercholesterolemia, unspecified Plan: Avoid fried foods, chicken skin, eggs, butter margarine, pastries and meat. Be it pork or beef they have a lot of cholesterol LDL goal of less than 70 and triglyceride of less than 150 on rosuvastatin 20 mg once a day last blood work was in November 2024 (5) Coronary artery disease: Comment: MRI November 2014 Dr. Donnie Melo [facility] Radiation Protection Technician stress test July 02 1018- Code(s): I25.10 - Atherosclerotic heart disease of cheesh-na coronary artery without angina pectoris Qualifiers: Associated angina: without angina 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 transplanted heart: cheesh-na heart Qualified Code(s): I25.10 - Atherosclerotic heart disease of cheesh-na coronary artery without angina pectoris Plan: Control the cholesterol, weight, blood pressure, continuing on anticoagulation (6) GERD (gastroesophageal reflux disease): Code(s): K21.9 - Gastro-esophageal reflux disease without esophagitis Qualifiers: Esophagitis presence: without esophagitis Qualified Code(s): K21.9 - Gastro-esophageal reflux disease without esophagitis Plan: Avoid the foods that causes that usually spicy foods, tomato products, juices, coffee, soda and foods that your sensitive to. After eating do not lie down, allow 3-4 hours before in lie down. And keep the head of bed above 30 degrees to avoid the acid from going up. (7) Renal insufficiency: Code(s): N28.9 - Disorder of kidney and ureter, unspecified Plan: Keep well hydrated, avoid NSAIDs (8) Anemia: Code(s): D64.9 - Anemia, unspecified Qualifiers: Anemia type: unspecified type Qualified Code(s): D64.9 - Anemia, unspecified Plan: Continuing to monitor, stable (9) History of prostate cancer: Comment: September 2015 dr. Garg, Dr. Paz Code(s): Z85.46 - Personal history of malignant neoplasm of prostate Plan: Continuing to monitor (10) Foot pain, right: Code(s): M79.671 - Pain in right foot Plan Plan Patient was informed and verbally consented to the use of an ambient scribe for clinic note documentation during this visit. 1. Right Foot Pain The patient reports pain in the instep of his right foot since the summer without a history of a fall, and the pain has not resolved. Physical exam shows point tenderness on palpation of the instep, without redness. Given the prolonged duration, an x-ray of the right foot will be ordered to rule out any bony abnormality. The leading differential is tendinopathy given the absence of trauma. Referral to podiatry may be considered depending on the findings. 2. Annual Wellness Visit The patient is here for his annual wellness visit. Routine labs, including cholesterol and PSA monitoring, will be ordered. His last Cologuard was in 2020, and he is due for repeat screening; this will be deferred until he returns from [place] in the spring. His immunizations are up to date, including flu and COVID shots. He was counseled on healthy diet, hydration, and staying active. 3. Paroxysmal Atrial Fibrillation The patient has a history of paroxysmal atrial fibrillation and a [id number] score of 3. Cardiology notes more frequent episodes, but the focus is on maintaining rate control. He will continue anticoagulation with Coumadin with an INR goal of 2.0-3.0 and rate control with metoprolol 50 mg daily. 4. Hypertension His blood pressure is well-controlled. He will continue his current regimen of losartan 25 mg and metoprolol 50 mg once daily. 5. Hypercholesterolemia His LDL was 56 mg/dL in November, meeting the goal of less than 70 mg/dL. He will continue on rosuvastatin 20 mg once daily. 6. History Of Prostate Cancer He is post-prostatectomy and followed by urology. Although there has been a slight rise in his PSA, his urologist is monitoring it, and no immediate action is required. His PSA will be monitored with routine labs. 7. Gastroesophageal Reflux Disease (Gerd) The patient reports infrequent nocturnal symptoms, managed as needed with Tums. The plan is to continue monitoring and advise him to stay well-hydrated and avoid NSAIDs. 8. Mild Anemia The patient has a history of mild anemia that has been stable for the last two to three years. His blood count will be monitored with the ordered labs. Discussion Notes I discussed the patient's new complaint of right foot pain. Given that the pain has persisted since the summer without a clear injury, I recommended an x-ray to assess for any underlying bony issues, explaining that without a fall, a tendon issue is more likely. I also placed an order for routine bloodwork, as his last labs were in November, to continue monitoring his chronic conditions. We reviewed his health maintenance needs, specifically that he is due for a Cologuard test. We agreed to defer ordering this until he returns from [place] in the spring. I confirmed he is up to date on his relevant immunizations. We discussed his occasional urinary leakage and agreed to monitor it, instructing him to let me know if it becomes more frequent, at which point an ultrasound could be considered to check for post-void residual. I performed a physical exam, including a rectal exam, to which the patient consented, and confirmed the result was negative for blood. I advised him to continue his current medications and follow up in six months, or sooner if needed. We also discussed that his primary care provider in [place] can manage his prescription renewals while he is there. Patient Instructions - Please go for a right foot X-ray and get your blood work done as ordered. - Continue taking your current medications as prescribed, including losartan, metoprolol, rosuvastatin, and Coumadin. - For your reflux, continue to drink plenty of fluids and avoid NSAID medications like ibuprofen or naproxen. - Maintain a healthy diet and keep yourself active. - Contact your primary care doctor in [place] for prescription refills when you are running low. - We will arrange for your next colon cancer screening (Cologuard) when you return in the spring. - Let us know if your urinary leakage becomes more frequent or bothersome. - Please schedule a follow-up appointment in six months. Orders: Orders 2 Comprehensive Met. Panel Today E78.00 - Pure hypercholesterolemia, unspecified Ferritin Today E78.00 - Pure hypercholesterolemia, unspecified Free T4 (Free Thyroxine) Today E78.00 - Pure hypercholesterolemia, unspecified Lipid Panel Today E78.00 - Pure hypercholesterolemia, unspecified IRON PROFILE Today E78.00 - Pure hypercholesterolemia, unspecified PSA,Total (Free>4and<10) Today Z85.46 - Personal history of malignant neoplasm of prostate XR foot RT 2V Today M79.671 - Pain in right foot Complete Blood Count Auto Diff Today E78.00 - Pure hypercholesterolemia, unspecified Reticulocyte Count Today E78.00 - Pure hypercholesterolemia, unspecified UA CC w/rflx Micro + Cult Today E78.00 - Pure hypercholesterolemia, unspecified, R30.0 - Dysuria Thyroid Stimulating Hormone Today E78.00 - Pure hypercholesterolemia, unspecified Vitamin B12 and Folate Today E78.00 - Pure hypercholesterolemia, unspecified Magnesium Today K21.9 - Gastro-esophageal reflux disease without esophagitis Quality Reporting (2019) Depression/Bipolar (159/160/161/177) PHQ-9: Total score: 0 Coding Level of Care Code Medicare Subsequent (G0439) Diagnoses Medicare annual wellness visit, subsequent Z00.00 Essential hypertension I10 Hypertension type: essential hypertension Paroxysmal atrial fibrillation I48.0 Atrial fibrillation type: paroxysmal Hypercholesterolemia E78.00 Coronary 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 transplanted heart: cheesh-na heart Gastroesophageal reflux disease without esophagitis K21.9 Esophagitis presence: without esophagitis Renal insufficiency N28.9 Anemia, unspecified type D64.9 Anemia type: unspecified type History of prostate cancer Z85.46 Foot pain, right M79.671
[2025-06-15 09:40] VITALS: BP 112/70; PULSE 75; TEMP 36.1; O2SAT 99; BMI 29.0
== END 2025-06-15 10:38 | disposition home or self-care (01) ==
LOC: HO.HMCH 09:27
PROVIDERS: PCP Internal Medicine; Visit Provider Internal Medicine
DX: Z00.00 Encounter for general adult medical examination without abnormal findings (principal); I10 Essential (primary) hypertension; I48.0 Paroxysmal atrial fibrillation; E78.00 Pure hypercholesterolemia, unspecified; I25.10 Atherosclerotic heart disease of native coronary artery without angina pectoris; K21.9 Gastro-esophageal reflux disease without esophagitis; N28.9 Disorder of kidney and ureter, unspecified; D64.9 Anemia, unspecified; Z85.46 Personal history of malignant neoplasm of prostate; M79.671 Pain in right foot

== ENCOUNTER 2025-06-16 07:23 | Outpatient (REF) | payer MEDICARE, OTHER, SELFPAY ==
--- NOTE | ~2025-06-16 | XR_ITS ---
EXAMINATION: XR FOOT, RIGHT CLINICAL INFORMATION: M79.671 - Pain in right foot COMPARISON: None available. TECHNIQUE: AP, lateral, and oblique views of the right foot. FINDINGS: Bone mineralization is normal. No visible acute fracture, dislocation or suspicious bony lesion. Mild first MTP arthritis, subchondral cysts and sclerosis in the metatarsal head. Tarsometatarsal alignment is maintained. Moderate plantar calcaneal spur.. XR/XR foot RT min 3V IMPRESSION: Mild first MTP arthritis. Electronically signed by: Jared Simon MD 06/16/2025 01:27 PM EST
[2025-06-16 07:34] LABS: MANUAL DIFF FLAG NO
[2025-06-16 07:54] LABS: Hematocrit 43.9 % (42.0-52.0); Hemoglobin 14.6 g/dl (14.0-18.0); Imm Gran Abs Auto 0.02 X10*3/uL (0.00-0.03); Imm Gran Pct Auto 0.3 % (0.0-0.4); Lymphocytes Absolute Auto 2.2 X10*3/uL (1.2-4.9); Mean Corpuscular HGB Conc 33.3 g/dl (31.0-36.0); Mean Corpuscular Hemoglobin 29.3 pg (27.0-33.0); Mean Corpuscular Volume 88.2 fL (80.0-98.0); NRBC Abs Auto 0.000 X10*3/uL (0.0-0.012); NRBC Pct Auto 0.0 /100WBC (0.0-0.2); Platelet Count 216 X10*3/uL (160-400); Red Blood Count 4.98 X10*6/uL (4.60-5.80); Reticulocytes Absolute 0.074 X10*6/uL (0.026-0.095); White Blood Count 6.5 X10*3/uL (4.8-10.8)
[2025-06-16 08:01] LABS: Appearance Urine Clear; Glucose Urine UA Negative (Negative); PH 6.0 (5.0-9.0); Specific Gravity - Urine 1.025 (1.005-1.025); UMIC TRIGGER UACC YES
[2025-06-16 08:20] LABS: Alanine Aminotransferase 27 U/L (0-40); Albumin Level 4.5 g/dL (3.5-5.0); Alkaline Phosphatase 84 U/L (39-117); Anion Gap 12 (12-20); Aspartate Amino Transferase 34 U/L (5-37); Blood Urea Nitrogen 25 mg/dL (9-16); Calcium 9.7 mg/dL (8.4-10.2); Carbon Dioxide 26 mmol/L (22-29); Chloride 108 mmol/L (96-108); Cholesterol 133 mg/dL (<200); Estimated Glomerular Filt Rate 54; HDL Cholesterol 40 mg/dL (>40); Iron 86 mcg/dL (45-160); Magnesium 2.0 mg/dL (1.6-2.6); Percent Iron Saturation 32 % (15-50); Potassium 4.3 mmol/L (3.3-5.1); Sodium 142 mmol/L (135-145); Total Iron Binding Capacity 268 mcg/dL (228-428); Total Protein 7.1 g/dL (6.5-8.0); Triglycerides 134 mg/dL (<150); Unsaturated Iron Binding 182 ug/dL
[2025-06-16 08:31] LABS: Ferritin 178 ng/mL (20-250); Free T4 (Free Thyroxine) 0.90 ng/dL (0.71-1.85); Thyroid Stimulating Hormone 2.55 uIU/mL (0.32-4.0)
[2025-06-16 08:39] LABS: PSA,Total (Free>4and<10) < 0.10 ng/mL (0.00-4.00)
[2025-06-16 08:41] LABS: Folate 11.5 ng/mL (> or = 4.0); Vitamin B12 380 pg/mL (200-900)
== END 2025-06-16 07:24 | disposition home or self-care (01) ==
LOC: HO.LAB 07:23
PROVIDERS: PCP Internal Medicine; Visit Provider Internal Medicine
DX: Z13.0 Encounter for screening for diseases of the blood and blood-forming organs and certain disorders involving the immune mechanism (principal); Z12.5 Encounter for screening for malignant neoplasm of prostate; K21.9 Gastro-esophageal reflux disease without esophagitis; E78.00 Pure hypercholesterolemia, unspecified; R30.0 Dysuria; M79.671 Pain in right foot; Z85.46 Personal history of malignant neoplasm of prostate
CPT/HCPCS: 36415; 73630; 80053; 80061; 81001; 81003; 82607; 82728; 82746; 83540; 83735; 84153; 84439; 84443; 85025; 85045

== ENCOUNTER → 2025-06-16 07:38 | Outpatient (BNV) | payer MEDICARE, OTHER, SELFPAY | PROVIDERS: PCP Internal Medicine; Visit Provider Radiology Diagnostic Ultrasound | DX: M19.071 Primary osteoarthritis, right ankle and foot (principal) | CPT/HCPCS: 73630 ==

== ENCOUNTER 2025-06-29 07:41 | Outpatient (AMB) | payer MEDICARE, OTHER, SELFPAY ==
--- NOTE | 2025-06-29 07:52 | MHC.OFFVISCO ---
Intake Intake Visit Reasons: Anticoagulation Allergies prednisone Allergy (Unknown, Verified 06/29/25 07:43) ? joint pain lisinopril Adverse Reaction (Intermediate, Verified 06/29/25 07:43) Dry throat Medication List - Last Reconciled 06/29/25 by Lubna Menard RN [hyaluronic acid PO] losartan 25 mg PO DAILY meclizine 12.5 mg PO DAILY PRN metoprolol succinate ER 50 mg PO DAILY [id number] [phone] mcg (Centrum Silver Men) 1 tab PO DAILY rosuvastatin 20 mg PO DAILY warfarin 2.5 mg See Protocol PO DAILY Nursing Note INR: 2.3 in therapeutic range Medications and supplements reviewed Right instep still has discomfort right below the ankle inside with light pressure 2/10 pain then with weight bearing 6/10 pain - had xray 06/16/25 and waiting for results. No changes in diet, medications, or supplements, Denies any signs and symptoms of bleeding or bruising or clotting. Bleeding, bruising, clotting discussed Nutritional guidance given Dose: increased warfarin dose to 2.5mg daily due to trending lower INR s F/U INR: 1 month - has INR checked in [place] Patient verbalizes understanding of instructions given Anti-Coag Initial Assessment Social Hx Patient Tobacco Use Status: Never used Tobacco alcohol intake: current Alcohol intake frequency: a few times a month Coding Level of Care Code Est Patient Level 1 Diagnoses Current use of anticoagulant therapy Z79.01 Results AMB INR Fingerstick AMB INR Fingerstick 2.3 Last Edit by Lubna Menard RN on 06/29/25 07:49 manual entry Assessment & Plan Assessment & Plan (1) Current use of anticoagulant therapy: Code(s): 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
[2025-06-29 09:24] LABS: Prothrombin Time Whole Bld POC 28.0 sec (11.1-13.5); ~PT, ~INR - Anti Coag Clinic 2.3 (0.9-1.1)
== END 2025-06-29 07:58 | disposition home or self-care (01) ==
LOC: HO.ACS 07:41
PROVIDERS: PCP Internal Medicine; Visit Provider Internal Medicine Medical Oncology
DX: Z79.01 Long term (current) use of anticoagulants (principal)

== ENCOUNTER → 2025-06-29 07:41 | Outpatient (BNVA) | payer MEDICARE, OTHER, SELFPAY | PROVIDERS: PCP Internal Medicine; Visit Provider Internal Medicine Medical Oncology | DX: I48.0 Paroxysmal atrial fibrillation (principal); Z51.81 Encounter for therapeutic drug level monitoring; Z79.01 Long term (current) use of anticoagulants | CPT/HCPCS: 85610; 99211 ==